=== PATIENT | female | born 1965 | race Caucasian/White ===

== ENCOUNTER → 2024-03-28 11:02 | Outpatient (REF) | payer BC, SELFPAY | LOC: REG 11:02 | PROVIDERS: ATTENDING PHYSICIAN Nurse Practitioner Adult Health; FAMILY PHYSICIAN Internal Medicine | DX: R10.30 Lower abdominal pain, unspecified (principal) | CPT/HCPCS: 87077; 87086; 87186 ==

== ENCOUNTER → 2024-05-15 16:19 | Outpatient (REF) | payer BC, SELFPAY | LOC: PAVMRI 16:19 | PROVIDERS: ATTENDING PHYSICIAN Nurse Practitioner Adult Health | DX: M54.14 Radiculopathy, thoracic region (principal) | CPT/HCPCS: 72146 ==

== ENCOUNTER → 2024-10-01 07:54 | Outpatient (REF) | payer BC, SELFPAY | LOC: WDC 07:54 | PROVIDERS: ATTENDING PHYSICIAN Internal Medicine | DX: Z12.39 Encounter for other screening for malignant neoplasm of breast (principal); Z12.31 Encounter for screening mammogram for malignant neoplasm of breast | CPT/HCPCS: 77063; 77067 ==

== ENCOUNTER → 2024-10-01 09:09 | Outpatient (REF) | payer BC, SELFPAY ==
[2024-10-01 10:58] LABS: % Eosinophils 1.6 % (0-6); % Immature Granulocytes 0.6 % (0-0.5); % Lymphocytes 25.9 % (20.5-51.1); % Neutrophils 64.9 % (42.2-75.2); Absolute Basophils 0.1 10^3/uL (0-0.2); Absolute Eosinophils 0.1 10^3/uL (0-0.7); Absolute Immature Granulocytes 0.1 10^3/uL (0-0.05); Absolute Monocytes 0.5 10^3/uL (0.1-0.6); Hematocrit 45.9 % (37.0-47.0); Hemoglobin 15.3 g/dL (12.0-16.0); Mean Corp Hgb Conc. 33.3 g/dL (33.0-37.0); Mean Corpuscular Hgb 29.7 pg (27.0-31.0); Mean Corpuscular Volume 89.1 fL (81.0-99.0); Mean Platelet Volume 10.9 fL (7.4-10.4); Nucleated Red Blood Cells % 0 %; Platelet Count 299 10^3/uL (130-400); Red Blood Cell Count 5.15 10^6/uL (4.20-5.40); Red Cell Dist. Width 13.1 % (11.5-14.5); White Blood Cell Count 7.7 10^3/uL (4.8-10.8)
[2024-10-01 11:58] LABS: ALT (SGPT) 40 U/L (0-35); AST (SGOT) 33 U/L (14-36); Albumin 4.8 g/dl (3.5-5.0); Alkaline Phosphatase 109 U/L (38-126); Blood Urea Nitrogen 16 mg/dl (7-17); Calcium 10.1 mg/dl (8.4-10.2); Carbon Dioxide 29 mmol/L (22-30); Chloride 98 mmol/L (98-107); Glucose 97 mg/dl (70-99); HDL Cholesterol 44 mg/dl; LDL Cholesterol, Calculated 141 mg/dl; Potassium 4.5 mmol/L (3.5-5.1); Sodium 142 mmol/L (135-145); Total Bilirubin 0.9 mg/dl (0.2-1.3); Total Cholesterol 206 mg/dl (50-199); Total Protein 7.7 g/dl (6.3-8.2); Triglyceride 109 mg/dl (10-149); Very Low Density Lipoprotein 21 mg/dl (0-30); eGFR > 60.00
[2024-10-01 12:28] LABS: TSH Reflex To Free T4 1.32 uIU/ml (0.47-4.68)
== END ==
LOC: REG 09:09
PROVIDERS: ATTENDING PHYSICIAN Internal Medicine
DX: Z00.00 Encounter for general adult medical examination without abnormal findings (principal)
CPT/HCPCS: 36415; 80053; 80061; 84443; 85025

== ENCOUNTER → 2024-10-08 10:03 | Outpatient (REF) | payer BC, SELFPAY ==
[2024-10-08 12:01] LABS: Glycohemoglobin (HgbA1c) 5.4 % (4.0-5.6)
== END ==
LOC: REG 10:03
PROVIDERS: ATTENDING PHYSICIAN Nurse Practitioner Adult Health
DX: E66.9 Obesity, unspecified (principal)
CPT/HCPCS: 36415; 83036

== ENCOUNTER 2025-02-25 22:23 | Inpatient (IN) | payer BC, SELFPAY ==
[2025-02-25 18:14] VITALS: BP 102/66
[2025-02-25] MEDS: LOW STRENGTH ASPIRIN 324 MG PO (18:22)
[2025-02-25 18:25] VITALS: BMI 36.8
--- NOTE | 2025-02-25 18:25 | ED.GENMED ---
History of Present Illness
General
Chief Complaint: Chest Pain
Source: patient
Exam Limitations: none
Time Seen by Provider: 02/25/25 18:19
Nursing documentation reviewed up to this point in time: agreed with
History of Present Illness
History of Present Illness:
59-year-old female presents Emergency Department due to chest pain that began at 2 AM. It seemed to go away, and he has she has been having nausea all day.
Past History
Past History
ED Past Medical History: HTN, Psychiatric and Other (Migraine headaches)
ED Past Surgical History: Cholecystectomy and Gynecological (Hysterectomy)
Social History
Tobacco: Non-smoker
Alcohol: Occasional (Rare)
Personal:
Living: with family
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
Family History
Family History: CAD
Review of Systems
Review of Systems
Allergies reviewed?: Yes
All Other Systems: Not applicable
Constitutional: Reports no symptoms
EENT: Reports no symptoms
Respiratory: Reports no symptoms
Cardiac: Reports chest pain
ABD/GI: Reports no symptoms
: Reports no symptoms
Musculoskeletal: Reports no symptoms
Skin: Reports no symptoms
Neurological: Reports no symptoms
Endocrine: Reports no symptoms
Hematologic/Lymphatic: Reports no symptoms
Psychiatric: Reports no symptoms
Phy Exam
Physical Exam
Physical Exam:
Physical Exam
General: Appears uncomfortable, afebrile
Neck: supple. no meningeal signs. normal posterior pharynx
Heart: s1/s2 regular rate and rhythm, no murmur. equal radial
pulses.
HEENT: Pupils equal round reactive to light, EOMI
Lungs: no acute respiratory distress. clear bilaterally
Abdomen: normal bowel sounds. not tender. no CVAT
Neuro: alert and oriented. no focal neurological deficits cranial nerves II through XII intact
Skin: no rash
Psychiatric: well kept. interactive and cooperative
Extremities: no edema. no calf tenderness. negative homans. good distal pulses
Scores
Heart Score for Chest Pain Patients
STEMI patient?: Yes
Course
Orders/Labs/Results
Orders:
Orders
02/25/25 18:09
EKG [Electrocardiogram (*1)] Urgent
Reason for Study: Chest Pain
02/25/25 18:10
EKG- Treatment ONCE
02/25/25 18:25
Ondansetron Injectable [Zofran] 4 mg .ROUTE .STK-MED ONE
02/25/25 18:29
Aspirin Chewable [Low Strength Aspirin] 324 mg PO NOW STA
Heparin 5,000 units IV NOW STA
Ticagrelor [Brilinta] 180 mg PO ONCE ONE
02/25/25 18:30
Ondansetron Injectable [Zofran] 4 mg IV NOW STA
02/25/25 18:33
Complete Blood Count/With Diff Urgent
Comprehensive Metabolic Panel Urgent
PTT Urgent
Prothrombin Time Urgent
Troponin I Urgent
02/25/25 18:35
Fentanyl Citrate/Pf [Sublimaze] 100 mcg .ROUTE .STK-MED ONE
Heparin 10,000 units .ROUTE .STK-MED ONE
Heparin 1000 Units/500 ml [Heparin] 1,000 units in 500 ml .ROUTE .STK-MED
Heparin Sodium,Porcine/Ns/Pf [Heparin 2000 Units/1000 ml] 2,000 unit in 1,000 ml .ROUTE .STK-MED
Lidocaine HCl/Pf [Xylocaine-Mpf 1% Vial] 100 mg .ROUTE .STK-MED ONE
Midazolam HCl [Versed] 2 mg .ROUTE .STK-MED ONE
Nitroglycerin [Tridil] 1,500 mcg .ROUTE .STK-MED ONE
Verapamil Injectable [Isoptin/Verapamil Injection] 5 mg .ROUTE .STK-MED ONE
02/25/25 19:11
Eptifibatide [Integrilin] 20 ml .ROUTE .STK-MED
02/25/25 19:24
Adenosine [Adenocard] 6 mg .ROUTE .STK-MED ONE
02/25/25 19:36
Lactic Acid Stat
Comment: RAPID
02/25/25 19:47
Nicardipine 40 mg/200 ml [Cardene] 40 mg in 200 ml .ROUTE .STK-MED
02/25/25 19:49
EPTIFIBATIDE 75 mg/100 mL [Integrilin] 75,000 mcg in 100 ml .ROUTE .STK-MED
02/25/25 19:56
Heparin 1000 Units/500 ml [Heparin] 1,000 units in 500 ml .ROUTE .STK-MED
02/25/25 20:11
Lidocaine HCl/Pf [Xylocaine-Mpf 1% Vial] 50 mg .ROUTE .STK-MED ONE
02/25/25 20:12
Furosemide [Lasix] 80 mg .ROUTE .STK-MED ONE
Abnormal Lab Results
02/25/25 02/25/25 02/25/25
18:33 18:56 19:20
WBC 25.8 H 10^3/uL
(4.8-10.8)
Abs Immat Gran (auto) 0.3 H 10^3/uL
(0-0.05)
Absolute Neuts (auto) 21.1 H 10^3/uL
(1.4-6.5)
Absolute Monos (auto) 1.7 H 10^3/uL
(0.1-0.6)
Immature Gran % 1.0 H %
(0-0.5)
Neutrophils % 81.9 H %
(42.2-75.2)
Lymphocytes % 10.4 L %
(20.5-51.1)
PT 16.0 H Sec
(11.4-14.6)
Chloride 96 L mmol/L
(98-107)
BUN 22 H mg/dl
(7-17)
Creatinine 1.5 H mg/dL
(0.6-1.0)
Glucose 171 H mg/dl
(70-99)
Lactic Acid
Calcium 10.6 H mg/dl
(8.4-10.2)
Total Bilirubin 2.1 H mg/dl
(0.2-1.3)
AST 1463 H* U/L
(14-36)
ALT 1132 H* U/L
(0-35)
Troponin I 108.000 H* ng/ml
POC ACT Low Range 195 H Seconds 234 H Seconds
(116-155) (116-155)
02/25/25 02/25/25 02/25/25
19:36 19:37 20:08
WBC
Abs Immat Gran (auto)
Absolute Neuts (auto)
Absolute Monos (auto)
Immature Gran %
Neutrophils %
Lymphocytes %
PT
Chloride
BUN
Creatinine
Glucose
Lactic Acid 2.9 H mmol/L
(0.7-2.0)
Calcium
Total Bilirubin
AST
ALT
Troponin I
POC ACT Low Range 226 H Seconds 236 H Seconds
(116-155) (116-155)
02/25/25 18:33
02/25/25 18:33
Vital Signs
Initial and Last Documented VS:
Initial Vital Signs
Temp Pulse Resp BP Pulse Ox
98.3 F 60 20 102/66 98
02/25/25 18:14 02/25/25 18:14 02/25/25 18:14 02/25/25 18:14 02/25/25 18:14
Last Documented Vital Signs
Temp Pulse Resp BP Pulse Ox
98.3 F 61 15 130/69 98
02/25/25 18:14 02/25/25 18:36 02/25/25 18:36 02/25/25 18:36 02/25/25 18:14
MDM/Problems Addressed
Differential Diagnosis Includes:
STEMI, aortic dissection
MDM/Problems Addressed:
59-year-old female with STEMI. Patient seen at bedside by Dr. Pérez. Doubt aortic dissection. Patient taken emergently to [facility]. Do not suspect aortic dissection.
Chronic conditions affecting care: HTN
Acute Exacerbation and/or Progression of Chronic Illness: HTN
*Pulse Oximetry
Patient hypoxic: no
*EKG
Interpreted by ED Provider?: Yes
EKG Intrepretation Date: 02/25/25
EKG Intrepretation Time: 18:12
Interpretation: abnormal
Comparison EKG: changes noted
Heart Rate: 51
Rate: bradycardiac
Rhythm: sinus
Hoagland: normal axis
Interval: normal interval
QRS Pattern: left bundle branch block
Ischemia: ST elevation
*Grain Farmer Interpretation
Rate: bradycardiac
Interpretation: normal
Heart Rate: 51
Rhythm: sinus
*Critical Care Note
Total Time (30-74mins, 75-104mins- exclusive of procedures): Not Applicable
Patient Management
Social determinants of health affecting care: Living situation and Strong social support
Discussion with other providers: [facility] (Soccer Player Dr. Pérez)
Escalation/DeEscalation of care consider admission/obs:
Admission indicated
ED Attending Note
-
Portions of this chart may have been created with voice recognition software.� Occasional wrong word or��sound alike� substitutions may have occurred due to the inherent limitations of voice recognition software.
Discharge Plan
Departure
Patient Disposition: [facility]
Date of Disposition: 02/25/25
Time of Disposition: 18:32
Admit to: [facility]
Presentation/result/management discussed w/ accepting MD/DO: Dr. Pérez, chief of anesthesiology
Patient with high blood pressure during this ER visit?: No
Condition: Fair
Discharge Problem:
ST elevation (STEMI) myocardial infarction
Interventions
Interventions:
*General Assessment Last Done: 02/25/25 18:14
*Nursing Disposition Last Done: 02/25/25 18:57
ED- Cardiac Assessment Last Done: 02/25/25 18:35
Discharge Date and Time
Discharge Date/Time: 02/25/25 18:45
[2025-02-25] MEDS: ZOFRAN 4 MG IV (18:30)
[2025-02-25] MEDS: HEPARIN 5000 UNITS IV (18:35)
[2025-02-25] MEDS: BRILINTA 180 MG PO (18:35)
[2025-02-25 18:36] VITALS: BP 130/69
[2025-02-25 18:38] VITALS: BP 130/101
[2025-02-25 18:58] LABS: INR 1.22
[2025-02-25 18:59] LABS: APTT 28.1 Sec (23.4-35.0)
[2025-02-25 19:00] LABS: Hematocrit 46.2 % (37.0-47.0); Hemoglobin 15.3 g/dL (12.0-16.0); Mean Corp Hgb Conc. 33.1 g/dL (33.0-37.0); Mean Corpuscular Hgb 28.9 pg (27.0-31.0); Mean Corpuscular Volume 87.3 fL (81.0-99.0); Mean Platelet Volume 9.8 fL (7.4-10.4); Platelet Count 394 10^3/uL (130-400); Red Blood Cell Count 5.29 10^6/uL (4.20-5.40); Red Cell Dist. Width 14.2 % (11.5-14.5); White Blood Cell Count 25.8 10^3/uL (4.8-10.8)
[2025-02-25 19:01] LABS: ACT-LR - POC 195 Seconds (116-155)
[2025-02-25 19:04] LABS: Albumin 4.7 g/dl (3.5-5.0); Alkaline Phosphatase 104 U/L (38-126); Blood Urea Nitrogen 22 mg/dl (7-17); Calcium 10.6 mg/dl (8.4-10.2); Carbon Dioxide 25 mmol/L (22-30); Chloride 96 mmol/L (98-107); Estimated Creatinine Clearance 47 ml/min; Glucose 171 mg/dl (70-99); Potassium 4.2 mmol/L (3.5-5.1); Sodium 138 mmol/L (135-145); Total Bilirubin 2.1 mg/dl (0.2-1.3); Total Protein 7.8 g/dl (6.3-8.2); eGFR 40.39
[2025-02-25 19:07] LABS: % Basophils 0.2 % (0-2); % Lymphocytes 10.4 % (20.5-51.1); % Monocytes 6.5 % (1.7-9.3); % Neutrophils 81.9 % (42.2-75.2); Absolute Basophils 0.1 10^3/uL (0-0.2); Absolute Immature Granulocytes 0.3 10^3/uL (0-0.05); Absolute Lymphocytes 2.7 10^3/uL (1.2-3.4); Absolute Monocytes 1.7 10^3/uL (0.1-0.6); Absolute Neutrophils 21.1 10^3/uL (1.4-6.5); Nucleated Red Blood Cells % 0 %
[2025-02-25 19:20] LABS: ALT (SGPT) 1132 U/L (0-35); AST (SGOT) 1463 U/L (14-36)
[2025-02-25 19:27] LABS: ACT-LR - POC 234 Seconds (116-155)
[2025-02-25 19:41] LABS: ACT-LR - POC 226 Seconds (116-155)
[2025-02-25 19:56] LABS: Lactic Acid 2.9 mmol/L (0.7-2.0)
[2025-02-25 20:13] LABS: ACT-LR - POC 236 Seconds (116-155)
[2025-02-25 20:39] LABS: ACT-LR - POC 205 Seconds (116-155)
[2025-02-25 20:58] LABS: B.E. -4.6 mmol/L; HCO3 19.4 mmol/L (21-28); O2 Saturation % 85.2 % (94-98); PCO2 32 mmHg (32-35); pH 7.39 (7.35-7.45)
[2025-02-25 21:03] LABS: PO2 54 mmHg (83-108)
[2025-02-25 21:10] LABS: ACT-LR - POC 195 Seconds (116-155)
[2025-02-25 22:14] LABS: ACT-LR - POC 197 Seconds (116-155)
--- NOTE | 2025-02-25 22:26 | ITS.CL.CATH ---
Pilling Machine Operator - Catheterization
Cardiac Catheterization
Procedure Report:
LEFT AND RIGHT HEART CATHETERIZATION
Date of Procedure: February 25, 2025
Referring: [place] emergency department
PROCEDURES:
1. Left heart catheterization, coronary angiogram.
2. Right heart catheterization.
3. Successful IVUS guided percutaneous coronary artery intervention of 100% proximal LAD occlusion (ADITYA 0 flow) with one 3.0 x 26 mm Medtronic [place] drug-eluting stent, postdilated with a 3.5 x 15 mm NC balloon at 16 christian distally and a 3.75 x 12 mm
NC balloon at 20 christian proximally based on IVUS guidance with an excellent angiographic and IVUS based result.
4. Intravascular ultrasound (IVUS)
5. Impella CP placement via right common femoral artery.
6. Placement of leave in [place] catheter via right common femoral vein.
7. Placement of a temporary transvenous pacemaker via left common femoral vein.
8. CPR
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
shortness of breath starting around 2 AM along with back pain who presented at around 6:30 PM with ongoing symptoms and was found to have anterior ST elevation MS on EKG which led to the heart catheterization team being called and emergently.
Patient received 325 mg of aspirin, 180 mg of Brilinta, 5000 units of unfractionated IV heparin in the emergency room and after detailed informed consent was urgently brought up to the heart catheterization lab. Of note, her initial ECG along with
the ST elevation MS also showed complete heart block with a ventricular escape.
ACCESS:
1. Right radial artery, 6 Taiwanese sheath, under ultrasound guidance.
2. Right common femoral artery, 14 Taiwanese sheath, under ultrasound guidance using a micropuncture kit.
3. Right common femoral vein, 8 Taiwanese sheath, under ultrasound guidance using a micropuncture kit.
4. Left common femoral vein, 6 Taiwanese sheath, under ultrasound guidance using a micropuncture kit.
HEMODYNAMICS : (mmHg)
RA (m) : 21
RV (s/d,m) : 43/13, 21
PA (s/d, m) : 56/27, 37
PCWP (m) : 35
PA saturation: 29.4% on 5 L of oxygen via nasal cannula. Repeat was 25.2%
AO saturation: 85% on 5 L of oxygen via nasal cannula
Cardiac Output : 1.8 L/min
Cardiac Index : 0.9 L/min/m-2
Systemic vascular resistance: 3324 dsc^(-5)
Pulmonary vascular resistance: 0.97 rodríguez unit
AO (s/d) : 99/73
LV (s/d) : 101/76
LVEDP : 27
CORONARY FINDINGS
DOMINANCE: Right
LEFT MAIN: The left main artery is a large-caliber vessel which gives rise to the left anterior descending artery and the left circumflex artery. There is mild diffuse atherosclerotic plaque
LEFT ANTERIOR DESCENDING: The left anterior descending artery is a large-caliber vessel with 100% occlusion which is the cause of her presenting ST elevation MS (ADITYA 0 flow)
CIRCUMFLEX: The left circumflex artery is a medium caliber vessel which gives rise to 2 major obtuse marginal branches. There is mild diffuse atherosclerotic plaque.
RIGHT CORONARY ARTERY: The right coronary artery is a medium to large caliber, dominant vessel which gives rise to the right posterior descending artery and the right posterolateral system. Mid RCA has a 70 to 80% eccentric stenosis. The right
posterior descending artery has diffuse 40 to 50% stenosis and is small in caliber. The right posterolateral system has diffuse moderate to severe atherosclerotic plaque and is small in caliber.
CORONARY INTERVENTION: Decision was made to proceed with intervention of the proximal LAD occlusion. Additional heparin was given to maintain a therapeutic ACT throughout the case. The left coronary artery was selectively engaged using a 6 Taiwanese
EBU 3.5 guide catheter. Initially we attempted a 190 cm 0.014 BMW coronary wire however despite multiple passes we could not navigate across the occlusion with the wire buckling and prolapsing into the left circumflex. We then trialed a 300 cm
0.014 director of billing 50 coronary wire and after multiple challenging attempts were finally able to navigate the wire into the distal vessel. We decided to give 2 Integrilin boluses at this time. We predilated the lesion with a 2.5 x 12 mm semi-compliant
balloon at 14 christian using multiple inflations and were eventually able to see some flow beyond the lesion. A diagonal branch that is small to medium in caliber just distal to the occlusion also had some easiness noted in the ostium of the vessel. We
proceeded with stenting the lesion with a 3.0 x 26 mm Medtronic John drug-eluting stent. Using IVUS guidance we then postdilated the lesion using a 3.5 x 15 mm NC balloon at 16 christian distally and a 3.75 x 12 mm NC balloon at 20 christian proximally.
Despite this we noted significant amount and no reflow in the mid to distal LAD. With the director of billing 50 into the distal vessel we brought in a 0.014 mini microcatheter into the mid LAD and through the microcatheter we gave multiple rounds of
vasodilators including nitroglycerin and nicardipine IC. With this we saw some improved flow into the distal vessel. Post PCI IVUS imaging showed a well-expanded and well apposed stent without evidence of proximal or distal edge dissections with
ADITYA-3 flow into the distal LAD. Ostial D1 thrombotic haziness was noted with 70 to 80% stenosis and ADITYA II flow however this is a small to medium caliber vessel. We then proceeded with a right heart catheter cessation number given her lab work
revealed a initial troponin I of 108, LFTs in the low 1000s and a lactate elevated at 2.9. With right heart catheterization suggesting significant cardiogenic shock, we decided to proceed with Impella CP placement. We obtained right common femoral
arterial access under ultrasound guidance using a micropuncture kit and placed the Impella CP sheath. As soon as we used a pigtail to cross the aortic valve into the LV, patient unfortunately had complete loss of the ventricular escape rhythm with
a string of P waves. Immediate CPR was initiated while we also got ready to transcutaneously pace. Through the right common femoral venous access that was already in place for the right heart catheterization, we very quickly brought up a
transvenous pacemaker and started pacing her transvenously with successful ventricular capture and a threshold of 1 mA. We perform CPR for less than 30 seconds before ROSC was obtained and patient thankfully continued to mentate well without
significant hypotension or other issues. Throughout the procedure as patient became more hypoxic, we also called respiratory to place a CPAP machine to help with oxygenation in the setting of pulmonary edema while 80 mg of IV Lasix was already
given. We obtain a secondary left common femoral venous access to sterilely place a second temporary transvenous pacemaker given the initial TVP did not have a sterile cover on it. Once we made a successful transfer with confirmation of capture
with the second TVP device, the first TVP device was retracted from the right common femoral venous access. The 6 Taiwanese sheath was upsized to a 7-1/2 Taiwanese sheath and through this we placed and left in a [place]ucl[place]qu[place] catheter which was parked in the
central PA. Everything was sutured and secured in place. Her Impella was providing 3 to 3.5 L/min of cardiac output. Her maps were noted to be in the low 100s after the Impella was placed so the decision was made to also start her on
nitroprusside in the CVICU. She otherwise tolerated the procedure well with no acute complications.
SEDATION: 141 minutes of procedural sedation was utilized. An independent medical technicians was present to assist with and help manage the patient's level of consciousness and physiologic status.
RADIATION SUMMARY: Fluoro Time (min): 26.0, Dose (mGy): 2008.2, DAP (Gy.cm2) : 122.2
Closure Device: 1. Vascular band over right radial artery, 11 cc of air.
2. Right common femoral arterial sheath, right common femoral venous sheath and left common femoral venous sheaths were sutured in place. Impella, [place]qu[place] catheter and temporary transvenous pacemaker were all secured in place.
CONCLUSIONS
1. Successful IVUS guided percutaneous coronary artery intervention of 100% proximal LAD occlusion (ADITYA 0 flow) with one 3.0 x 26 mm Medtronic John drug-eluting stent, postdilated with a 3.5 x 15 mm NC balloon at 16 christian distally and a 3.75 x 12 mm
NC balloon at 20 christian proximally based on IVUS guidance with an excellent angiographic and IVUS based result.
2. Severely elevated right left-sided filling pressures with significantly reduced cardiac output concerning for cardiogenic shock with Impella CP placement via right common femoral artery.
3. Mid RCA has a 70 to 80% eccentric stenosis. The right posterior descending artery has diffuse 40 to 50% stenosis and is small in caliber. The right posterolateral system has diffuse moderate to severe atherosclerotic plaque and is small in
caliber.
RECOMMENDATIONS
1. Uninterrupted dual antiplatelet therapy with daily baby aspirin and 90 mg of Brilinta twice daily along with high intensity statin.
2. Urgent echocardiogram to assess biventricular function and get a baseline Impella placement.
3. Every 6 hour lab work including CBC, CMP, lactate, mixed venous sats after left radial arterial line is obtained.
4. Chest x-ray now and in the morning.
5. Aggressive management of cardiovascular risk factors.
6. Eventual referral for cardiac rehab.
Dot Pérez MD, FACC, [facility]
--- NOTE | 2025-02-25 22:52 | HPS.HSE ---
Family Physician
-
Family Physician: Tabby Millan
Chief Complaint
-
Chest PAin
History of Present Illness
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
breath starting around 2 AM along with back pain who presented at around 6:30 PM with ongoing symptoms and was found to have anterior ST elevation NC on EKG which led to the heart catheterization team being called and emergently. Patient received
325 mg of aspirin, 180 mg of Brilinta, 5000 units of unfractionated IV heparin in the emergency room and after detailed informed consent was urgently brought up to the heart catheterization lab. She denies any history of hyperlipidemia, type 2
diabetes mellitus. There is strong family history of premature coronary artery disease in grandparents. Her older sister is with her in the emergency room. Patient is a non-smoker, very rare alcohol use, no recreational drug usage. She has 2
kids.
Medical History
Past Medical History
Past Medical History: Reports HTN; Denies CVA, Hypercholesterolemia, IDDM or NIDDM
Past Surgical History: Reports None
Social History
Tobacco: Non-smoker
Alcohol: Occasional
Drug: None
Personal: Single
Living: With Family
Employment: Employed
Family History
Family History: Early CAD
Allergies / Home Medications
Allergies reflects when Allergies were last updated in [employer].
Home Medications with original date entered in [employer]
Allergy/Medication List:
No known drug allergies
If Other, explain: Amlodipine 10 mg daily and losartan 50 mg daily.
Review of Systems
-
A 12 point ROS was completed and negative except as noted: Yes
Physical Exam
Vital Signs
Vital Signs
Temp Pulse Resp BP Pulse Ox
98.3 F 61 15 130/69 98
02/25/25 18:14 02/25/25 18:36 02/25/25 18:36 02/25/25 18:36 02/25/25 18:14
Physical Exam
General: Well Developed, Well Nourished and Appears in Distress (Ongoing chest pain)
HEENT: Moist mucous membranes
Respiratory: Rales and Crackles
Cardiac: S1/S2, Bradycardia, JVD and HJR; No Rub or Gallop
GI: Soft, Non Tender, Non Distended and Normal Bowel Sounds
Genito-urinary: Deferred by me
Musculoskeletal: No Clubbing, No Cyanosis and No Edema
Skin: Warm and Dry
Neuro: AO x 3
Psych: Anxious
Laboratory Results
-
Laboratory Results
PT 16.0 Sec (11.4-14.6) H 02/25/25 18:33
INR 1.22 02/25/25 18:33
APTT 28.1 Sec (23.4-35.0) 02/25/25 18:33
pH 7.39 (7.35-7.45) 02/25/25 20:44
pCO2 32 mmHg (32-35) 02/25/25 20:44
pO2 54 mmHg (83-108) L* 02/25/25 20:44
HCO3 19.4 mmol/L (21-28) L 02/25/25 20:44
Lactic Acid 2.9 mmol/L (0.7-2.0) H 02/25/25 19:36
Total Bilirubin 2.1 mg/dl (0.2-1.3) H 02/25/25 18:33
AST 1463 U/L (14-36) H* 02/25/25 18:33
ALT 1132 U/L (0-35) H* 02/25/25 18:33
Alkaline Phosphatase 104 U/L (38-126) 02/25/25 18:33
Troponin I 108.000 ng/ml H* 02/25/25 18:33
Data Reviewed
-
Critical Care Time (in minutes): 62
Medical Tests (Nuc Med, Echo, EKG etc): Image Personally Visualized and interpreted
Lab Data: Labs Reviewed by me
Impression/Plan
-
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
shortness of breath starting around 2 AM along with back pain who presented at around 6:30 PM with ongoing symptoms and was found to have anterior ST elevation NC on EKG which led to the heart catheterization team being called and emergently.
Patient received 325 mg of aspirin, 180 mg of Brilinta, 5000 units of unfractionated IV heparin in the emergency room and after detailed informed consent was urgently brought up to the heart catheterization lab.
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
Possibly late presenting anterior and anterolateral ST elevation NC, Successful IVUS guided percutaneous coronary artery intervention of 100% proximal LAD occlusion (ADITYA 0 flow) with one 3.0 x 26 mm Medtronic John drug-eluting stent, postdilated
with a 3.5 x 15 mm NC balloon at 16 christian distally and a 3.75 x 12 mm NC balloon at 20 christian proximally based on IVUS guidance with an excellent angiographic and IVUS based result.
Cardiogenic shock status post Impella CP
Acute decompensated systolic and diastolic heart failure, 80 mg of IV Lasix given during the case
Complete heart block status post temporary transvenous pacemaker
Acute hypoxic respiratory failure, placed on positive ventilatory support with CPAP
Hypertension
Residual Mid RCA CAD
Acute kidney injury
Acute liver injury
Transient CPR during cath for loss of ventricular escape, ROSC within less than 30 seconds with normal mentation afterward
RECOMMENDATIONS
1. Uninterrupted dual antiplatelet therapy with daily baby aspirin and 90 mg of Brilinta twice daily along with high intensity statin.
2. Urgent echocardiogram to assess biventricular function and get a baseline Impella placement. This was completed at bedside with me present there. Estimated LVEF is 15 to 20% with significant hypokinesis in the LAD territory. Impella appears
to be well-positioned about 3.7 cm below the aortic annulus.
3. Every 6 hour lab work including CBC, CMP, lactate, mixed venous sats after left radial arterial line is obtained.
4. Chest x-ray now and in the morning.
5. Aggressive management of cardiovascular risk factors.
6. Eventual referral for cardiac rehab.
Patient is critically ill as discussed with nursing, patient and her family.
Dot Pérez MD, FACC, [facility]
[2025-02-25 23:03] VITALS: BP 135/108
[2025-02-25] MEDS: SODIUM BICARBONATE 1025 MEQ INF CATH (23:27)
--- NOTE | 2025-02-25 23:30 | PTCARENOTE ---
received pt from [facility] to [id number]. Pt AAOx4, Impella CP through R groin set to P-6. R fem vein w/ Randolph floated to 70cm. 100% v paced HR 80 per tele monitor. Transvenous pacer through L fem vein sheath. v wire set to VVI 80/20/2. pox 99% on CPAP
8/10, lungs clear throughout. +bs, fine draining clear yellow urine. R band inflated with 10 mls. piv intact. plan of care discussed questions encouraged
gtts:
Nipride
[2025-02-25] MEDS: NITROPRESS 252 MG IV (23:32)
[2025-02-25 23:33] VITALS: BP 124/95
[2025-02-25 23:45] VITALS: BP 124/82
[2025-02-25 23:57] LABS: Mixed Venous O2 Saturation 44.3 %
[2025-02-26] VITALS (19 sets, daily range): BP systolic 77–136; BP diastolic 51–96; BMI 36.2
[2025-02-26 00:01] LABS: ACT-LR - POC 157 Seconds (116-155)
[2025-02-26 00:02] LABS: Hematocrit 38.7 % (37.0-47.0); Hemoglobin 13.3 g/dL (12.0-16.0); Mean Corp Hgb Conc. 34.4 g/dL (33.0-37.0); Mean Corpuscular Hgb 29.4 pg (27.0-31.0); Mean Corpuscular Volume 85.4 fL (81.0-99.0); Mean Platelet Volume 9.8 fL (7.4-10.4); Platelet Count 328 10^3/uL (130-400); Red Blood Cell Count 4.53 10^6/uL (4.20-5.40); Red Cell Dist. Width 14.1 % (11.5-14.5); White Blood Cell Count 22.9 10^3/uL (4.8-10.8)
[2025-02-26 00:11] LABS: Fibrinogen 566 MG/DL (199-459); INR 1.39; PT 17.6 Sec (11.4-14.6)
[2025-02-26 00:13] LABS: APTT 91.7 Sec (23.4-35.0); D-Dimer 1.03 ug/mlFEU (0.00-0.50)
[2025-02-26 00:14] LABS: Lactic Acid 1.9 mmol/L (0.7-2.0)
[2025-02-26 00:16] LABS: Albumin 4.1 g/dl (3.5-5.0); Alkaline Phosphatase 93 U/L (38-126); Blood Urea Nitrogen 27 mg/dl (7-17); Calcium 9.2 mg/dl (8.4-10.2); Carbon Dioxide 26 mmol/L (22-30); Chloride 101 mmol/L (98-107); Estimated Creatinine Clearance 59 ml/min; Glucose 133 mg/dl (70-99); Potassium 3.5 mmol/L (3.5-5.1); Sodium 137 mmol/L (135-145); Total Bilirubin 1.5 mg/dl (0.2-1.3)
[2025-02-26 00:28] LABS: ALT (SGPT) 2007 U/L (0-35)
--- NOTE | 2025-02-26 00:29 | W.PN.ANS.LIN ---
Anesthesia IV & A-Line Note
- IV/Arterial Line
Left Radial Arrow 20 (01/27)
IV Line Comments: Uneventful Procedure
A-Line Comments: Sterile technique as per standard protocol, Uneventful procedure, Seldinger technique used, Ultrasound guided insertion, Biopatch applied (successful placement after multiple attempts by PA.)
[2025-02-26 00:41] LABS: B.E. -1.6 mmol/L; HCO3 21.5 mmol/L (21-28); Ionized Calcium 1.17 mMOL/L (1.15-1.33); O2 Saturation % 96.8 % (94-98); PCO2 31 mmHg (32-35); PO2 74 mmHg (83-108); Potassium 3.3 mMOL/L (3.5-5.1); pH 7.45 (7.35-7.45)
[2025-02-26 00:43] LABS: O2 Therapy CPAP
[2025-02-26 00:53] LABS: AST (SGOT) 3319 U/L (14-36)
[2025-02-26] MEDS: KCL 50 IV ×2 (00:55→03:20)
[2025-02-26] MEDS: LIPITOR 80 MG PO (00:57)
[2025-02-26 01:43] LABS: LDH 5520 U/L (120-246)
[2025-02-26 02:30] LABS: Mixed Venous O2 Saturation 61.1 %
[2025-02-26 02:32] LABS: B.E. -1.7 mmol/L; HCO3 21.9 mmol/L (21-28); O2 Saturation % 99.5 % (94-98); PCO2 33 mmHg (32-35); PO2 211 mmHg (83-108); Potassium 3.7 mMOL/L (3.5-5.1); pH 7.43 (7.35-7.45)
[2025-02-26 02:35] LABS: O2 Therapy CPAP 10L
[2025-02-26 05:09] LABS: B.E. -0.4 mmol/L; HCO3 22.8 mmol/L (21-28); Ionized Calcium 1.18 mMOL/L (1.15-1.33); O2 Saturation % 98.7 % (94-98); PCO2 32 mmHg (32-35); PO2 88 mmHg (83-108); Potassium 3.9 mMOL/L (3.5-5.1); pH 7.46 (7.35-7.45)
[2025-02-26 05:10] LABS: O2 Therapy 6 L NC
[2025-02-26 05:12] LABS: Mixed Venous O2 Saturation 57.6 %
[2025-02-26 05:26] LABS: % Basophils 0.2 % (0-2); % Immature Granulocytes 0.9 % (0-0.5); % Monocytes 3.3 % (1.7-9.3); % Neutrophils 82.6 % (42.2-75.2); Absolute Immature Granulocytes 0.2 10^3/uL (0-0.05); Absolute Monocytes 0.8 10^3/uL (0.1-0.6); Absolute Neutrophils 19.3 10^3/uL (1.4-6.5); Hematocrit 37.2 % (37.0-47.0); Hemoglobin 12.5 g/dL (12.0-16.0); Mean Corp Hgb Conc. 33.6 g/dL (33.0-37.0); Mean Corpuscular Hgb 28.6 pg (27.0-31.0); Mean Corpuscular Volume 85.1 fL (81.0-99.0); Mean Platelet Volume 9.8 fL (7.4-10.4); Nucleated Red Blood Cells % 0 %; Platelet Count 304 10^3/uL (130-400); Red Blood Cell Count 4.37 10^6/uL (4.20-5.40); White Blood Cell Count 23.4 10^3/uL (4.8-10.8)
[2025-02-26 05:34] LABS: INR 1.31; PT 16.8 Sec (11.4-14.6)
[2025-02-26 05:35] LABS: APTT 32.7 Sec (23.4-35.0); Fibrinogen 586 MG/DL (199-459)
[2025-02-26 05:38] LABS: D-Dimer 1.85 ug/mlFEU (0.00-0.50)
[2025-02-26 05:44] LABS: Lactic Acid 1.6 mmol/L (0.7-2.0)
[2025-02-26 05:48] LABS: Albumin 3.3 g/dl (3.5-5.0); Alkaline Phosphatase 87 U/L (38-126); Blood Urea Nitrogen 27 mg/dl (7-17); Calcium 9.2 mg/dl (8.4-10.2); Carbon Dioxide 26 mmol/L (22-30); Chloride 103 mmol/L (98-107); Direct Bilirubin 0.3 mg/dl (0.0-0.4); Estimated Creatinine Clearance 78 ml/min; Glucose 123 mg/dl (70-99); HDL Cholesterol 42 mg/dl; Potassium 4.2 mmol/L (3.5-5.1); Sodium 135 mmol/L (135-145); Total Bilirubin 1.7 mg/dl (0.2-1.3); Total Cholesterol 136 mg/dl (50-199); Total Protein 5.7 g/dl (6.3-8.2); eGFR > 60.00
[2025-02-26 05:49] LABS: LDL Cholesterol, Calculated 68 mg/dl; Triglyceride 132 mg/dl (10-149); Very Low Density Lipoprotein 26 mg/dl (0-30)
[2025-02-26 06:02] LABS: ALT (SGPT) 2057 U/L (0-35)
[2025-02-26 06:09] LABS: AST (SGOT) 3269 U/L (14-36)
[2025-02-26 06:22] LABS: LDH 5410 U/L (120-246)
[2025-02-26] MEDS: LASIX 80 MG IV ×2 (06:22→14:09)
--- NOTE | 2025-02-26 07:51 | PTCARENOTE ---
Saturated right groin dressing changed using sterile technique as per Dr Pérez. Site now clean dry and intact. Jose aware and will continue to monitor. Dr Pérez at the bedside.
--- NOTE | 2025-02-26 08:15 | PTCARENOTE ---
Assumed care of patient at 0700. Pt is awake, alert, and oriented. No complaints of pain at this time. Pt remains 100% V paced. Transvenous pacer in place set to 80/20/2. Impella in place at 89cm set to P7, now changed to P6 by Dr. Pérez. Left
radial Martin BP 112/74 MAP 83. PA 27/14, CVP 9. Placement signal 90/62. Pulse oximetry 96% on 6L nasal cannula. Bowel sounds hypoactive. Rivas catheter in place draining yellow urine. Right radial cath site ARASELI, approximated. Bilateral radial pulses
palpable. Left groin with transvenous pacer/venous sheath. Right femoral venous sheath/[place]-Jacqueline catheter at [address]cm [address] place. Right femoral artery with Impella in place. Bilateral pedal pulses present with Doppler. Nipride at 1mcg/kg/min.
[2025-02-26 09:03] LABS: Glycohemoglobin (HgbA1c) 5.7 % (4.0-5.6)
[2025-02-26 09:13] LABS: ACT-LR - POC 131 Seconds (116-155)
[2025-02-26] MEDS: LOW STRENGTH ASPIRIN 81 MG PO (09:25)
[2025-02-26] MEDS: BRILINTA 90 MG PO ×2 (09:25→19:22)
--- NOTE | 2025-02-26 10:31 | W.PN.UPDATE ---
Update Note
Progress Note Update
Interventional cardiology update note
Around 5:30-6 AM on February 26, 2025, discussed overnight events with CT surgical PA reviewing all vital signs including [place]-Jacqueline catheter numbers as well as the Impella numbers along with lab work. Her lactate remains normal At 1.6, creatinine
normalized to 0.9, LFTs are still significantly elevated. Her blood gas remained stable off CPAP currently. She is diuresing well and producing 50 cc of urine per hour. Her blood pressure on the A-line is 105/74, MAP of 83, PA pressure of 30/17,
mean PA pressure of 21, RA pressure of 8, cardiac output and cardiac indices by thermodilution at bedside are 3.12 and 1.55. She is currently on P7. Groin Impella dressing saturated in blood with plan to redress this morning. We decided to give
additional 80 mg of IV Lasix and increase the night pride to aim for maps of 65-70 and avoiding any systolic blood pressure less than 95 mmHg. Continue to maintain Impella at P7 support. Plan to trend LDH Given patient is high risk for hemolysis.
Around 7:30 AM on February 26, 2025, patient seen and evaluated at bedside. Groin dressing was re-dressed after ice Previous dressing had completely soaked. Thankfully her blood counts have remained stable with hemoglobin at 12.5. Repeat mixed
venous saturation is 57.6 with cardiac output of about 1.5, cardiac power output of 0.66 and PAP of about 2. Her PA pressure was 31/15, RA pressure of 9, cardiac output of 3.57 and cardiac index of 1.78 with SVR of 1680. I discussed with nursing
at bedside to uptitrate nitroprusside to aim for maps of 65-70 and attempt of getting SVR down and improving cardiac output. We decreased Impella support to P6 to minimize risk for hemolysis.
On exam patient remains in good spirits, denies any chest discomfort or shortness of breath, is on bedrest complaining of some lower back discomfort. Awake, alert and oriented x 3, regular rate, normal S1 and S2, all groin lines are in place,
clean, dry and intact, radial site without evidence of hematoma or bruit. Temp wires in place and patient is V paced at 80 bpm. Blood pressure on arterial line is 119/81, MAP of 90. Lactate has normalized with creatinine down to 0.9
Around 8:15AM: I reached out to Sandy Reyes, advanced heart failure at [facility] to get patient on her reader in case we struggled with weaning of support and suspected she would need escalation of support especially with the weekend
coming up if transfer to a tertiary center was warranted. I presented the case to Sandy and she agreed with the ongoing treatment and did not feel like they would do anything differently at [facility]. We will continue to manage here optimizing
medications
Around 11 AM when I checked back in on her at bedside, upon review of her lab work I noted that her lactate which was normal most of the morning was back up to 2.1. Upon discussion with nursing at bedside we determined that her nitroprusside had
been weaned off. Her maps were now in the high 90s to low 100s. Mixed venous saturation had also dropped off to 56.1 with cardiac index below 1.8 again. Her blood pressure on in the A-line was 118/80 with MAP of 92 with her PA pressures up to
35/18 and RA pressure of 9. Patient otherwise did not report any new symptoms. I discussed with nursing to restart nitroprusside and aim for maps of 65-70 with plan to recheck mixed venous sat as well as a lactate once maps were in that range. I
decided to leave the Impella at P6. We did discuss giving another 80mg IV lasix. Her LDH had come down from 5400 to 4700. Her urinalysis showed 2+ occult blood with 3-6 RBCs in her urine otherwise appeared clear. Given her temperatures were noted
to have low-grade fevers which is likely from a systemic inflammatory response in the setting of an acute AR we did discuss sending 2 sets of blood cultures however would hold off on initiating antibiotics at this time. Echocardiogram tech also was
asked to, bedside and we confirmed that overall LVEF continues to remain about 15 to 20% without obvious LV thrombus noted. The Impella otherwise was stable at about 3.9 cm below the aortic annulus
Around 2 PM her mixed venous sat after adjustment of nitroprusside had improved back up to 61.6 with blood pressure down to 97/63 with a MAP of 72 and PA pressures down to 25/15 and RA pressure of 6 with cardiac output on bedside thermodilution up
to 3.91 and cardiac index of 1.95. She was noted at this time on telemetry to have jumped into a sinus tachycardia with heart rates in the 115's. Patient herself did not report any new complaints. She was still making good urine. Lactate in the
setting had normalized again back down to 1.3 from 2.1. Other repeat labs showed creatinine down to 0.7 with potassium low at 3.3 with plan to replete this. Blood counts had remained stable. LFTs starting to downtrend with AST at 2053 and ALT at
1941. Patient had been taking in some p.o. mainly liquids at this point.
Her sister and her son along with his partner were at bedside. I had a lengthy discussion with them regarding all of the events overnight as well as this morning and we discussed that though a lot of her numbers had improved, she continues to
remain critically ill and we are very closely monitoring and managing her. I did inform that in case we had any concerns about her needing escalation of care that we would have a low threshold to consider transferring to a tertiary center given she
is otherwise young to give her the best chance in terms of recovery post ST elevation AR. Her bedside thermodilution cardiac output was 4.4 and index of 2.1. Given her index had improved significantly, we decided to trial reducing Impella support to
P5 level, changed by myself bedside. I did I discussed with nursing rechecking a lactate level as well as a mixed venous sat around 3 PM
I followed back up with her around 4 PM bedside. Patient's mixed venous sat had dropped back down to 58.4 with lactate going back up to 2.1 with A-line blood pressures up at 114/76 with a MAP of 86 and PA pressures up at 31/17, RA pressure of 9
with cardiac index dropping below 2 again. Given her heart rates were still sinus tachycardia at 115-117, concern was that most of her cardiac output was being driven by increasing heart rate rather than recovery of contractility. Given this we
went back up to P6 with plan to recheck a mixed venous sat and lactate in another hour after making these changes.
Around 4:45PM: Given persistent tachycardia with lactate rising and other hemodynamics worsening with minimal decrease in Impella support, and this otherwise young patient, I was very concerned that she may need prolonged resting from a LV support
standpoint and therefore I reached back out to Sandy Reyes to discuss possible escalation of care and transfer to [facility].
Around 5:30PM, I got on a call with Sandy Reyes and transfer center along with CT surgeon, Dr. Madsen and we presented the case discussing all of the hemodynamics and her presentation in significant detail over a 45-minute phone call and in a team
approach focused on cardiogenic shock, we agreed that it would be best to transfer her to [facility] for close monitoring and escalation of support if need be given she is high risk for hemolysis with a Impella CP device through her
right groin. We then help arrange for transfer. I went back bedside and spoke to the patient at length. Thankfully repeat lactate had come back down to 1.5 with blood gas from a mixed venous standpoint improving back up to 59.6 on Impella P6.
Patient was agreeable to transfer. Discussed extensively with nursing at bedside. Also filled out transfer paperwork and arranged for reports to be printed and sent over with the patient along with CD that included images from the heart
catheterization as well as the echocardiogram. Cath images were also pushed over via life image so that teams at [facility] receiving her could review these. I also reached out to her Sister Helga upon patient's request and
explained all of the above and reason for transfer. Helga relate understanding and all of her questions were answered in detail. Helga told me that she would update patient's son as well as .
Dot Pérez MD, [facility], [facility]
[2025-02-26] MEDS: TOPAMAX 25 MG PO (11:09)
[2025-02-26] MEDS: HEPARIN 25000 UNITS/250 ML IV (11:10)
[2025-02-26 11:22] LABS: Mixed Venous O2 Saturation 56.1 %
[2025-02-26 11:28] LABS: APTT 31.9 Sec (23.4-35.0)
[2025-02-26 11:35] LABS: Lactic Acid 2.1 mmol/L (0.7-2.0)
--- NOTE | 2025-02-26 11:45 | PTCARENOTE ---
Pt remains CHB, remains 100% V paced at rate 80. BP 113/76 MAP 87. PA 35/19, CVP 9. Most recent CO 3.80, CI 1.89, SVR 1662. Impella remains in place set to P6. Placement signal 98/71, flow 2.9, Nipride titrated off. Pedal pulses remains present with
Doppler, radial pulses palpable. Pulse oximetry 94% on room air. Heparin gtt started.
[2025-02-26 12:34] LABS: LDH 4745 U/L (120-246)
--- NOTE | 2025-02-26 13:50 | ECGCV ---
ADOLFO Smith notified of ECG critical value identified by electronic interpretation on ECG completed on 02/26/25, at 1347.
--- NOTE | 2025-02-26 13:52 | PTCARENOTE ---
Pt 100% V paced, HR 80. Converted to ST with HR 115-120's. EKG obtained.
[2025-02-26 14:17] LABS: Hematocrit 35.7 % (37.0-47.0); Hemoglobin 12.4 g/dL (12.0-16.0); Mean Corp Hgb Conc. 34.7 g/dL (33.0-37.0); Mean Corpuscular Hgb 29.2 pg (27.0-31.0); Mean Corpuscular Volume 84.2 fL (81.0-99.0); Mixed Venous O2 Saturation 61.6 %; Platelet Count 245 10^3/uL (130-400); Red Blood Cell Count 4.24 10^6/uL (4.20-5.40); Red Cell Dist. Width 14.3 % (11.5-14.5); White Blood Cell Count 21.4 10^3/uL (4.8-10.8)
[2025-02-26 14:28] LABS: Lactic Acid 1.3 mmol/L (0.7-2.0)
[2025-02-26] MEDS: NITROPRESS 252 MG IV (14:29)
[2025-02-26 14:54] LABS: Urine Albumin 2+ (Neg - Trace); Urine Bilirubin Negative (Negative); Urine Character Clear (Clear); Urine Color Yellow; Urine Glucose Negative (Negative); Urine Ketone Negative (Negative); Urine Leukocyte 1+ (Negative); Urine Nitrite Negative (Negative); Urine Occult Blood 2+ (Negative); Urine Specific Gravity 1.015 (<1.030); Urine Urobilinogen 1+ (Neg - 1+)
[2025-02-26 15:07] LABS: Albumin 3.5 g/dl (3.5-5.0); Alkaline Phosphatase 98 U/L (38-126); Blood Urea Nitrogen 24 mg/dl (7-17); Calcium 8.6 mg/dl (8.4-10.2); Carbon Dioxide 25 mmol/L (22-30); Chloride 101 mmol/L (98-107); Estimated Creatinine Clearance 99 ml/min; Glucose 109 mg/dl (70-99); Potassium 3.3 mmol/L (3.5-5.1); Sodium 134 mmol/L (135-145); Total Bilirubin 2.4 mg/dl (0.2-1.3); Total Protein 5.9 g/dl (6.3-8.2); eGFR > 60.00
[2025-02-26 15:08] LABS: Urine Bacteria Moderate (Negative); Urine White Cell 16-20 /HPF (0-5)
[2025-02-26 15:15] LABS: ALT (SGPT) 1942 U/L (0-35)
--- NOTE | 2025-02-26 15:23 | CM ---
Reviewed chart. Met with Mr. Dhillon, her son and sister to review discharge plans. Family states prior to admission she resides with her spouse and two sons in a three story home with one step to enter. She has a full flight of steps to get to
bedroom/full bathroom. She does not have a powder room on the first floor. Prior to admission she was independent with ambulation and adls. She does not have any DME in the home. She has a prescription plan. Will need to see her functional
level to see if she will have any skilled care needs Medical work-up in progress The discharge plan is undetermined at this time.
[2025-02-26] MEDS: CLARITIN 10 MG PO (15:43)
[2025-02-26 15:48] LABS: AST (SGOT) 2054 U/L (14-36)
--- NOTE | 2025-02-26 16:00 | PTCARENOTE ---
Pt received 80mg IV Lasix per order. Impella placed to P5 by Dr. Pérez. On reassessment Lactic Acid increased from 1.3 to 2.1 and MVO2 decreased from 61.6 to 58.4. Pt placed back to P6 by Dr. Pérez. Pt remains on Nipride 0.4mcg/kg/min.
[2025-02-26 16:11] LABS: Mixed Venous O2 Saturation 58.4 %
[2025-02-26 16:26] LABS: Lactic Acid 2.1 mmol/L (0.7-2.0)
[2025-02-26 17:46] LABS: Mixed Venous O2 Saturation 59.6 %
[2025-02-26 17:47] LABS: APTT 44.4 Sec (23.4-35.0)
[2025-02-26 17:49] LABS: Lactic Acid 1.5 mmol/L (0.7-2.0)
[2025-02-26] MEDS: LIPITOR 40 MG PO (17:49)
[2025-02-26 18:10] LABS: LDH 3580 U/L (120-246)
--- NOTE | 2025-02-26 20:30 | PTCARENOTE ---
pt transferred at change of shift to [facility] by [place] [employer]. Pt stable during transfer, VSS, Impella device and sites maintained. assessment from previous day shift unchanged. gtts: Nipride and Heparin. report called to receiving nurse
at [place] and given to [place] [employer]. pt belongings to be picked by pt sister per day shift team.
== END 2025-02-26 20:46 | disposition short-term general hospital (02) | DRG 215 ==
LOC: CVICU 22:23
PROVIDERS: Physician Assistant; Physician Assistant Medical; ADMITTING PHYSICIAN Internal Medicine; ATTENDING PHYSICIAN Internal Medicine Interventional Cardiology; EMERGENCY PHYSICIAN Emergency Medicine; FAMILY PHYSICIAN Internal Medicine
PROC: B2151ZZ Fluoroscopy of Left Heart using Low Osmolar Contrast (ICD-10-PCS; 2025-02-25)
PROC: 5A12012 Performance of Cardiac Output, Single, Manual (ICD-10-PCS; 2025-02-25)
PROC: B2111ZZ Fluoroscopy of Multiple Coronary Arteries using Low Osmolar Contrast (ICD-10-PCS; 2025-02-25)
PROC: 5A0221D Assistance with Cardiac Output using Impeller Pump, Continuous (ICD-10-PCS; 2025-02-25)
PROC: 5A09357 Assistance with Respiratory Ventilation, Less than 24 Consecutive Hours, Continuous Positive Airway Pressure (ICD-10-PCS; 2025-02-25)
PROC: 02HA3RZ Insertion of Short-term External Heart Assist System into Heart, Percutaneous Approach (ICD-10-PCS; 2025-02-25)
PROC: 4A023N8 Measurement of Cardiac Sampling and Pressure, Bilateral, Percutaneous Approach (ICD-10-PCS; 2025-02-25)
PROC: 5A1223Z Performance of Cardiac Pacing, Continuous (ICD-10-PCS; 2025-02-25)
PROC: 027034Z Dilation of Coronary Artery, One Artery with Drug-eluting Intraluminal Device, Percutaneous Approach (ICD-10-PCS; 2025-02-25)
PROC: B240ZZ3 Ultrasonography of Single Coronary Artery, Intravascular (ICD-10-PCS; 2025-02-25)
PROC: 03HY32Z Insertion of Monitoring Device into Upper Artery, Percutaneous Approach (ICD-10-PCS; 2025-02-26)
DX: I21.09 ST elevation (STEMI) myocardial infarction involving other coronary artery of anterior wall (principal); I50.43 Acute on chronic combined systolic (congestive) and diastolic (congestive) heart failure; J96.01 Acute respiratory failure with hypoxia; R57.0 Cardiogenic shock; N17.9 Acute kidney failure, unspecified; I44.2 Atrioventricular block, complete; I11.0 Hypertensive heart disease with heart failure; I25.10 Atherosclerotic heart disease of native coronary artery without angina pectoris; I49.3 Ventricular premature depolarization; E66.9 Obesity, unspecified; Z68.36 Body mass index [BMI] 36.0-36.9, adult; Z79.899 Other long term (current) drug therapy; Z82.49 Family history of ischemic heart disease and other diseases of the circulatory system
CPT/HCPCS: 93308; 33990; 71045; 80053; 80061; 81003; 81015; 82248; 82330; 82805; 82810; 83036; 83605; 83615; 83735; 84132; 84484; 85025; 85027; 85347; 85379; 85384; 85610; 85730; 87040; 87086; 92978; 93005; 93306; 93460; 94660; 96374; 99152; 99153; 99284; C1725; C1753; C1760; C1769; C1874; C1894; C9606; J0153; J1327; Q9950; Q9967

== ENCOUNTER → 2025-03-19 10:02 | Outpatient (REF) | payer BC, SELFPAY ==
[2025-03-19 10:44] LABS: % Basophils 0.6 % (0-2); % Eosinophils 2.7 % (0-6); % Immature Granulocytes 0.4 % (0-0.5); % Lymphocytes 22.4 % (20.5-51.1); % Monocytes 4.3 % (1.7-9.3); % Neutrophils 69.6 % (42.2-75.2); Absolute Basophils 0.1 10^3/uL (0-0.2); Absolute Eosinophils 0.2 10^3/uL (0-0.7); Absolute Lymphocytes 1.7 10^3/uL (1.2-3.4); Absolute Monocytes 0.3 10^3/uL (0.1-0.6); Absolute Neutrophils 5.4 10^3/uL (1.4-6.5); Hematocrit 34.1 % (37.0-47.0); Mean Corp Hgb Conc. 32.3 g/dL (33.0-37.0); Mean Corpuscular Hgb 28.8 pg (27.0-31.0); Mean Corpuscular Volume 89.3 fL (81.0-99.0); Mean Platelet Volume 9.6 fL (7.4-10.4); Nucleated Red Blood Cells % 0 %; Platelet Count 307 10^3/uL (130-400); Red Blood Cell Count 3.82 10^6/uL (4.20-5.40); Red Cell Dist. Width 16.2 % (11.5-14.5); White Blood Cell Count 7.7 10^3/uL (4.8-10.8)
[2025-03-19 12:24] LABS: Blood Urea Nitrogen 8 mg/dl (7-17); Calcium 9.6 mg/dl (8.4-10.2); Carbon Dioxide 22 mmol/L (22-30); Chloride 108 mmol/L (98-107); Glucose 77 mg/dl (70-99); Magnesium 2.2 mg/dl (1.6-2.3); Potassium 4.6 mmol/L (3.5-5.1); Sodium 142 mmol/L (135-145); eGFR > 60.00
== END ==
LOC: REG 10:02
PROVIDERS: ATTENDING PHYSICIAN Internal Medicine; FAMILY PHYSICIAN Internal Medicine
DX: I10 Essential (primary) hypertension (principal); I50.20 Unspecified systolic (congestive) heart failure
CPT/HCPCS: 36415; 80048; 83735; 85025

== ENCOUNTER 2025-03-26 21:48 | Inpatient (IN) | payer BC, SELFPAY ==
[2025-03-26] VITALS (8 sets, daily range): BP systolic 84–119; BP diastolic 55–98; BMI 35.1
[2025-03-26] MEDS: NSS 500 IV (19:32)
[2025-03-26 19:44] LABS: Hematocrit 36.2 % (37.0-47.0); Mean Corp Hgb Conc. 33.1 g/dL (33.0-37.0); Mean Corpuscular Hgb 28.6 pg (27.0-31.0); Mean Corpuscular Volume 86.4 fL (81.0-99.0); Mean Platelet Volume 9.7 fL (7.4-10.4); Platelet Count 295 10^3/uL (130-400); Red Blood Cell Count 4.19 10^6/uL (4.20-5.40); White Blood Cell Count 6.9 10^3/uL (4.8-10.8)
[2025-03-26 19:56] LABS: INR 1.16; PT 15.3 Sec (11.4-14.6)
[2025-03-26 19:58] LABS: ALT (SGPT) 23 U/L (0-35); AST (SGOT) 30 U/L (14-36); Albumin 4.4 g/dl (3.5-5.0); Alkaline Phosphatase 102 U/L (38-126); Blood Urea Nitrogen 16 mg/dl (7-17); Calcium 9.5 mg/dl (8.4-10.2); Carbon Dioxide 22 mmol/L (22-30); Chloride 103 mmol/L (98-107); Estimated Creatinine Clearance 98 ml/min; Glucose 81 mg/dl (70-99); Potassium 4.3 mmol/L (3.5-5.1); Sodium 137 mmol/L (135-145); Total Bilirubin 1.2 mg/dl (0.2-1.3); Total Protein 7.2 g/dl (6.3-8.2); eGFR > 60.00
--- NOTE | 2025-03-26 19:59 | ED.GENMED ---
History of Present Illness
<Luis Colin PA-C - Last Filed: 03/26/25 21:16>
General
Chief Complaint: Visual Problem
Source: patient
Time Seen by Provider: 03/26/25 19:35
History of Present Illness
History of Present Illness:
59-year-old female with past medical history of recent acute VT status post LAD stenting with multiple complications, still has an apical thrombus, on Eliquis and Plavix presenting to the emergency department for evaluation after waking up 2 days
ago and noting that both eyes were very blurry stating her son came into the room and she was seeing 2 of them. The visual disturbance has been relatively constant although she does note brief periods where her vision does seem to be a little bit
clear and there is also associated mild headache. Patient does have a history of migraines but states this headache feels very than her typical type of headache. She reports that after getting home from her cardiac event she has been feeling
overall pretty good. Denies any focal weakness or numbness, current chest pain or shortness of breath, abdominal pain, nausea, vomit or any other concerns.
Past History
<Luis Colin PA-C - Last Filed: 03/26/25 21:16>
Past History
ED Past Medical History: HTN, VT, Psychiatric and Other (Migraine headaches)
ED Past Surgical History: Cholecystectomy and Gynecological (Hysterectomy)
Social History
Tobacco: Non-smoker
Alcohol: Occasional (Rare)
Drug: None
Personal:
Living: with family
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
Family History
Family History: CAD
Review of Systems
<DARCIE uMñoz Last Filed: 03/26/25 21:16>
Review of Systems
All Other Systems: ROS reviewed and negative except as documented in HPI and ROS
Phy Exam
<Luis Colin PA-C - Last Filed: 03/26/25 21:16>
Physical Exam
Physical Exam:
GENERAL: Alert , in no apparent distress
HEAD: NCAT
EYE: pupils equal and reactive, clear conjunctiva, pupils 4 mm bilateral, no field cuts
NECK: Supple
ENT: o/p clr, mmm.
CARDIAC: Regular rate and rhythm .
LUNGS: Clear breath sounds bilaterally, no acute respiratory distress, no wheezes/rales/rhonchi
NEUROLOGICAL: Alert and oriented, no focal neuro deficits, no dysmetria or dysarthria, no aphasia, no ataxia
SKIN: Warm and dry, skin intact.
MUSCULOSKELETAL: No edema, well perfused.
PSYCH: Normal and appropriate interaction.
Scores
<Luis Colin PA-C - Last Filed: 03/26/25 21:16>
NIH Stroke Score
Level of Consciousness: 0 - Alert
LOC Questions: 0-Answers both correctly
LOC Commands: 0-Performs both correctly
Best Horizontal Gaze: 0-Normal
Visual Moreno: 0=Normal, no visual loss
Facial Palsy: 0=Normal, symmetrical
Motor - Right Arm: 0=No drift 10 seconds
Motor - Left Arm: 0=No drift 10 seconds
Motor - Right Le-No drift 5 seconds
Motor - Left Le-No drift 5 seconds
Limb Ataxia: 0-Absent
Sensation: 0-Normal
Best Language: 0-No aphasia
Dysarthria: 0-Normal
Extinction and Inattention: 0-No abnormality
Total Score:: 0
Heart Failure Risk
Heart Failure Risk Score: Not Applicable
Heart Score for Chest Pain Patients
STEMI patient?: Not applicable
Withdrawal Assessment of Alcohol
Withdrawal Assessment Completed?: Not applicable
<Loraine Rutledge DO - Last Filed: 03/26/25 22:36>
NIH Stroke Score
Total Score:: 0
Course
<uLis Colin PA-C - Last Filed: 03/26/25 21:16>
Orders/Labs/Results
Orders:
Orders
03/26/25 17:23
CT Head W/o Iv Contrast Urgent
Comment:
Reason For Exam: blurry and double vision x2 days
03/26/25 19:13
Electrocardiogram (*1) Urgent
Reason for Study: TIA/Stroke
03/26/25 19:14
EKG- Treatment ONCE
03/26/25 19:31
0.9% Sodium Chloride 500 ml [Nss] 500 ml IV BOLUS
03/26/25 19:32
Complete Blood Count/No Diff Urgent
Comprehensive Metabolic Panel Urgent
PT/INR [Prothrombin Time] Urgent
03/26/25 19:46
CT Head & Neck Angio W/wo IV Urgent
Comment:
Reason For Exam: bilateral blurred vision
03/26/25 20:42
Apixaban [Eliquis] 5 mg PO NOW STA
Atorvastatin [Lipitor] 80 mg PO NOW STA
03/26/25 20:51
Sacubitril 24/Valsartan 26 [Entresto 24 mg/26 mg] 1 tab PO NOW STA
03/26/25 21:14
Admit/Transfer Patient As Directed
Co-Sign Provider:
Level of Care: Inpatient admission
Assign to:: Telemetry
Physician / Group: martha
Diagnosis: diplopia,
Reason for Telemetry: Arrhythmia
Date to Stop Telemetry: 03/29/25
Time to Stop Telemetry: 11:00
Reason for Hospitalization: diplopia
Expected length of stay greater than two midnights?: Yes
ELOS- Estimated Length of Stay in days: 2
I certify the patient meets the requirements for IP care: Yes
PRN Pain Medication Management As Directed
May give lesser potent ordered pain med per pt: Yes
preference::
Protocol:: Medication orders for pain may be administered in a
manner that supports deferring to patient preference
when the pt is:
- Requesting an ordered lesser potent pain medication.
Least to most potent pain medications are defined
as: acetaminophen < NSAID < tramadol < opioids
(morphine, oxycodone, hydromorphone).
- Requesting a lesser dose of the same medication IF
ORDERED.
- Requesting a less intrusive route of administration
if both routes are prescribed by the provider (PO <
IV).
03/26/25 21:15
Code Status As Directed
Resuscitation Status: Full Code
03/26/25 21:22
Acetaminophen [Tylenol] 650 mg .ROUTE .STK-MED ONE
03/26/25 21:28
Acetaminophen [Tylenol] 650 mg PO NOW STA
03/26/25 22:00
Flush (0.9% Sodium Chloride) [Flush (Nss)] See Dose Instructions IV PER PROTOCOL
03/29/25 11:00
DC Protocol for Telemetry ONCE
Abnormal Lab Results
03/26/25
19:32
RBC 4.19 L 10^6/uL
(4.20-5.40)
Hct 36.2 L %
(37.0-47.0)
RDW 16.0 H %
(11.5-14.5)
PT 15.3 H Sec
(11.4-14.6)
03/26/25 19:32
03/26/25 19:32
Vital Signs
Initial and Last Documented VS:
Initial Vital Signs
Temp Pulse Resp BP Pulse Ox
98.8 F 86 16 119/86 95
03/26/25 17:42 03/26/25 17:42 03/26/25 17:42 03/26/25 17:42 03/26/25 17:42
Last Documented Vital Signs
Temp Pulse Resp BP Pulse Ox
98.8 F 85 19 91/62 99
03/26/25 17:42 03/26/25 21:56 03/26/25 21:30 03/26/25 21:25 03/26/25 21:56
<Loraine Rutledge, DO - Last Filed: 03/26/25 22:36>
Orders/Labs/Results
Orders:
Orders
03/26/25 17:23
CT Head W/o Iv Contrast Urgent
Comment:
Reason For Exam: blurry and double vision x2 days
03/26/25 19:13
Electrocardiogram (*1) Urgent
Reason for Study: TIA/Stroke
03/26/25 19:14
EKG- Treatment ONCE
03/26/25 19:31
0.9% Sodium Chloride 500 ml [Nss] 500 ml IV BOLUS
03/26/25 19:32
Complete Blood Count/No Diff Urgent
Comprehensive Metabolic Panel Urgent
PT/INR [Prothrombin Time] Urgent
03/26/25 19:46
CT Head & Neck Angio W/wo IV Urgent
Comment:
Reason For Exam: bilateral blurred vision
03/26/25 20:42
Apixaban [Eliquis] 5 mg PO NOW STA
Atorvastatin [Lipitor] 80 mg PO NOW STA
03/26/25 20:51
Sacubitril 24/Valsartan 26 [Entresto 24 mg/26 mg] 1 tab PO NOW STA
03/26/25 21:14
Admit/Transfer Patient As Directed
Co-Sign Provider:
Level of Care: Inpatient admission
Assign to:: Telemetry
Physician / Group: martha
Diagnosis: diplopia,
Reason for Telemetry: Arrhythmia
Date to Stop Telemetry: 03/29/25
Time to Stop Telemetry: 11:00
Reason for Hospitalization: diplopia
Expected length of stay greater than two midnights?: Yes
ELOS- Estimated Length of Stay in days: 2
I certify the patient meets the requirements for IP care: Yes
PRN Pain Medication Management As Directed
May give lesser potent ordered pain med per pt: Yes
preference::
Protocol:: Medication orders for pain may be administered in a
manner that supports deferring to patient preference
when the pt is:
- Requesting an ordered lesser potent pain medication.
Least to most potent pain medications are defined
as: acetaminophen < NSAID < tramadol < opioids
(morphine, oxycodone, hydromorphone).
- Requesting a lesser dose of the same medication IF
ORDERED.
- Requesting a less intrusive route of administration
if both routes are prescribed by the provider (PO <
IV).
03/26/25 21:15
Code Status As Directed
Resuscitation Status: Full Code
03/26/25 21:22
Acetaminophen [Tylenol] 650 mg .ROUTE .STK-MED ONE
03/26/25 21:28
Acetaminophen [Tylenol] 650 mg PO NOW STA
03/26/25 22:00
Flush (0.9% Sodium Chloride) [Flush (Nss)] See Dose Instructions IV PER PROTOCOL
03/29/25 11:00
DC Protocol for Telemetry ONCE
Abnormal Lab Results
03/26/25
19:32
RBC 4.19 L 10^6/uL
(4.20-5.40)
Hct 36.2 L %
(37.0-47.0)
RDW 16.0 H %
(11.5-14.5)
PT 15.3 H Sec
(11.4-14.6)
03/26/25 19:32
03/26/25 19:32
Vital Signs
Initial and Last Documented VS:
Initial Vital Signs
Temp Pulse Resp BP Pulse Ox
98.8 F 86 16 119/86 95
03/26/25 17:42 03/26/25 17:42 03/26/25 17:42 03/26/25 17:42 03/26/25 17:42
Last Documented Vital Signs
Temp Pulse Resp BP Pulse Ox
98.8 F 85 19 91/62 99
03/26/25 17:42 03/26/25 21:56 03/26/25 21:30 03/26/25 21:25 03/26/25 21:56
<Luis Colin PA-C - Last Filed: 03/26/25 21:16>
MDM/Problems Addressed
Differential Diagnosis Includes:
CVA, intracranial bleeding, malignancy, retinal complication, aneurysm
MDM/Problems Addressed:
59-year-old female presenting to the emergency department for evaluation of bilateral blurred vision for the last 2 days. Recently had complicated VT resulting in need for transfer to [facility] where patient had an LVAD and ECMO performed. Still with
apical thrombus. Anticoagulated on Eliquis and Plavix. Physical exam is reassuring outside of patient being hypotensive. 500 mL bolus of normal saline solution ordered. CT of the head was ordered on arrival and negative for any acute
intracranial pathology. I did discuss the case with neurology who is requesting a CTA be ordered, admit with plans for MRI tomorrow. Patient is already anticoagulated on Eliquis and Plavix so no further anticoagulants to be ordered.
Chronic conditions affecting care: Other (Recent acute VT)
<Luis Colin PA-C - Last Filed: 03/26/25 21:16>
*Radiology
Radiology exam reviewed: radiology read reviewed
*Pulse Oximetry
Patient hypoxic: no
*EKG
Heart Rate: 77
Rate: normal
Rhythm: sinus
Ischemia: other (Q waves within the septal leads)
*Bridge Expert Interpretation
Rate: normal
Rhythm: sinus
*Critical Care Note
Total Time (30-74mins, 75-104mins- exclusive of procedures): Not Applicable
<Luis Colin PA-C - Last Filed: 03/26/25 21:16>
Patient Management
Discussion with other providers: Hospitalist and Social Service Assistant
Escalation/DeEscalation of care consider admission/obs:
Hospitalist team to admit.
ED Attending Note
<Luis Colin PA-C - Last Filed: 03/26/25 21:16>
-
Portions of this chart may have been created with voice recognition software.� Occasional wrong word or��sound alike� substitutions may have occurred due to the inherent limitations of voice recognition software.
<Loraine Rutledge DO - Last Filed: 03/26/25 22:36>
ED Attending Note
Patient seen and examined by attending physician: Yes
I performed the substantive portion of visit, reviewed & personally made and approve the management plan that is documented in note by myself or VENU.: Yes
I performed a history and physical exam of patient and discussed management with resident, I reviewed resident's note and agree with documented findings and plan of care.: Yes
ED Attending Note:
59-year-old female with recent cardiac event requiring stent x 2 at [facility] presenting to the emergency department for double vision and blurred vision. Patient reports that she was released from [facility] on the . She is currently on aspirin and
Plavix. 2 days ago she started to have double vision as well as blurred vision. She does wear glasses at baseline. Denies any trauma or recent injury. Denies weakness or numbness to her extremities or any history of stroke. Denies fever. Vital
signs are normal. Patient sent in by her doctor for concern of acute stroke.
On exam patient is resting comfortably, no acute distress comfort. Patient moving all extremities equally, no sensory deficits. Extraocular movements are intact, pupils are equal and reactive. Peripheral moreno are full, however patient continues
to report blurred vision and double vision. In the setting of double vision with recent cardiac event, embolic stroke is a consideration. Initial CT brain imaging is negative. Plan for CT angio and ultimately admission for neurology consultation
and MRI.
Discharge Plan
Departure
Patient Disposition: Admit
Date of Disposition: 03/26/25
Time of Disposition: 20:51
Presentation/result/management discussed w/ accepting MD/DO: Hospitalist
Discharge Problem:
Visual disturbance, Hypotension, unspecified
Interventions
Interventions:
*Risk Screen - Suicide Last Done: 03/26/25 17:42
*General Assessment Last Done: 03/26/25 18:54
*Neglect/Abuse Screening Last Done: 03/26/25 17:42
*ED- Fall Risk Assessment Last Done: 03/26/25 18:54
*ED COVID-19 Vaccine History Last Done: 03/26/25 18:54
ED- Neurological Assessment Last Done: 03/26/25 19:00
--- NOTE | 2025-03-26 21:19 | HPS.HSE ---
Family Physician
-
Family Physician: Paulina Millan
Chief Complaint
-
diplopia
History of Present Illness
59-year-old female past medical history of recent STEMI status post stent complicated by cardiogenic shock status post Impella and complicated by complete heart block status post temporary pacemaker and later transferred to [facility] status post
temporary LVAD and ECMO and ICD, history of apical thrombus, presents with bilateral blurred vision for 2 days as well as double vision.
Patient has a history of frequent complex migraines usually accompanied by headache and vertigo. 2 days ago she developed bilateral blurry vision with headache which she thought was a migraine however she had double vision with both of her eyes
open which she thought was unusual for her history of migraines. She denies any light sensitivity or aura or nausea or vomiting. Headache is described as bilateral aching around her skull. Migraines usually respond to ibuprofen however she is not
allowed to take this due to her recent cardiac history.
She denies any focal tingling or numbness or vertigo or difficulty swallowing or facial droop or difficulty ambulating. She has a chronic nystagmus with leftward gaze which is not new as per her.
She denies any chest pain or shortness of breath or lower extremity edema.
She denies smoking or alcohol use.
Significant family history of cardiac problems in her father. No family history of strokes.
Medical History
Past Medical History
Past Medical History: Reports Other (recent STEMI status post stent complicated by cardiogenic shock status post Impella and complicated by complete heart block status post temporary pacemaker and later transferred to [facility] status post temporary LVAD
and ECMO and ICD, history of apical thrombus)
Past Surgical History: Reports Other (ICD )
Social History
Tobacco: Non-smoker
Alcohol: None
Drug: None
Family History
Family History: Not pertinent
Allergies / Home Medications
Allergies reflects when Allergies were last updated in [facility].
Home Medications with original date entered in [facility]
Allergy/Medication List:
Allergies
Allergy/AdvReac Type Severity Reaction Status Date / Time
No Known Allergies Allergy Verified 03/26/25 18:54
Home Medications
bupropion HCl 300 mg 24 hr tablet, extended release 300 mg PO DAILY 11/15/17
topiramate 25 mg tablet (Topamax) 25 mg PO DAILY 02/26/25
venlafaxine 75 mg tablet 225 mg PO DAILY 02/26/25
apixaban 5 mg tablet (Eliquis) 5 mg PO BID 03/26/25
atorvastatin 80 mg tablet (Lipitor) 80 mg PO HS 03/26/25
clopidogrel 75 mg tablet (Plavix) 75 mg PO DAILY 03/26/25
empagliflozin 10 mg tablet (Jardiance) 10 mg PO DAILY 03/26/25
famotidine 20 mg tablet (Pepcid) 20 mg PO BID 03/26/25
furosemide 20 mg tablet (Lasix) 20 mg PO DAILY 03/26/25
metoprolol succinate 25 mg tablet,extended release 24 hr (Toprol XL) 12.5 mg PO DAILY 03/26/25
sacubitril 24 mg-valsartan 26 mg tablet (Entresto) 1 tab PO BID 03/26/25
spironolactone 25 mg tablet 12.5 mg PO DAILY 03/26/25
Review of Systems
-
History Source: Patient
A 12 point ROS was completed and negative except as noted: Yes
Constitutional: Reports No Symptoms
EENT: Reports No Symptoms
Respiratory: Reports No Symptoms
Cardiac: Reports No Symptoms
Abdomen/GI: Reports No Symptoms
: Reports No Symptoms
Musculoskeletal: Reports No Symptoms
Skin: Reports No Symptoms
Neurological: Reports See HPI
Endocrine: Reports No Symptoms
Hematologic/Lymphatic: Reports No Symptoms
Psych: Reports No Symptoms
Physical Exam
Vital Signs
Vital Signs
Temp Pulse Resp BP Pulse Ox
98.8 F 77 17 95/63 98
03/26/25 17:42 03/26/25 20:45 03/26/25 20:45 03/26/25 20:00 03/26/25 20:45
Physical Exam
General: Well Developed, Well Nourished and No Apparent Distress
HEENT: NormoCephalic, Moist mucous membranes and Atraumatic
Respiratory: Clear
Cardiac: S1/S2 and Regular Rhythm; No Murmur or Rub
GI: Soft, Non Tender, Non Distended and Normal Bowel Sounds; No Organomegaly
Rectal: Deferred by Provider
Musculoskeletal: No Clubbing, No Cyanosis and No Edema
Skin: No Rash
Neuro: Nonfocal/grossly intact and Other (nystagmus leftward gaze )
Laboratory Results
-
03/26/25 19:32
03/26/25 19:32
Laboratory Results
PT 15.3 Sec (11.4-14.6) H 03/26/25 19:32
INR 1.16 03/26/25 19:32
Total Bilirubin 1.2 mg/dl (0.2-1.3) 03/26/25 19:32
AST 30 U/L (14-36) 03/26/25 19:32
ALT 23 U/L (0-35) 03/26/25 19:32
Alkaline Phosphatase 102 U/L (38-126) 03/26/25 19:32
Data Reviewed
-
Lab Data: Labs Reviewed by me
Old Records: Reviewed
Impression/Plan
-
IMPRESSION:
PLAN:
# New onset of diplopia and bilateral blurred vision possibly complex migraine rule out CVA given recent history of apical thrombus
# History of complex migraines
# History of known nystagmus with leftward gaze
- CT head shows no acute intracranial abnormality
- CTA head and neck pending
- Check MRI brain
- Continue Eliquis, Plavix
- Tylenol for headache
- Continue Topamax
- Neurology consult
# Hypotension likely secondary to cardiac medications
-IV fluid bolus was given
- Hold Entresto, spironolactone, Jardiance, Lasix for now
#History of STEMI complicated by cardiogenic shock status post Impella and temporary LVAD and ECMO also complicated by heart block status post temporary pacemaker
# ICD placement
- Continue Plavix, statin
- Continue metoprolol
Ischemic cardiomyopathy
- Echo from February shows EF of 20 to 25%, no thrombus was seen at that time
- Continue Jardiance
- Hold Lasix
History of apical thrombus
- Continue Eliquis
Anxiety/depression
- Continue venlafaxine
GERD
-continue Pepcid
Full code
DVT prophylaxis�Eliquis
Regular diet
[2025-03-26] MEDS: LIPITOR 80 MG PO (21:25)
[2025-03-26] MEDS: ELIQUIS 5 MG PO (21:27)
[2025-03-26] MEDS: TYLENOL 650 MG PO (21:28)
[2025-03-26] MEDS: LIPITOR PO (23:21)
[2025-03-27] VITALS (8 sets, daily range): BP systolic 84–111; BP diastolic 50–71; PULSE 81; BMI 33.8
--- NOTE | 2025-03-27 00:16 | PTCARENOTE ---
03/26 at 2250 > Patient arrived via stretcher with belongings; Admitted for diplopia; telemetry orders> Sinus rhythm w/ BBC on monitor-strip placed in chart. VSS> afebrile, HR 76, RR 18, BP 111/68, pox 100% room air. Pt administered Tylenol in the ED
for a headache. Current 03/05.
x2 IV sites #20 RFA, #20 Rhand. S/p ICD. Pt states she was diagnosed with sleep apnea, but do to cost, does not currently utilize device (CPAP) at home. Patient states that a sleep study is scheduled in April. PMH and medications reviewed by this RN
and patient. Patient ordered MRI brain but will require Ativan 0.5mg IV prior. Plan of care discussed. Call knight within reach.
--- NOTE | 2025-03-27 03:14 | PTCARENOTE ---
Addendum entered by Karen Head RN 03/27/25 03:34:
House SUPERVISOR [employer] made aware. No new orders at this time.
Original Note:
Patient's monitoring coordinator alarmed Tachycardia HR 140-170s- strip placed in chart. Pt assessed and states that she's has palpitations. Pt states Cardiology is aware of this.
[2025-03-27 07:27] LABS: % Basophils 0.7 % (0-2); % Eosinophils 2.8 % (0-6); % Immature Granulocytes 0.6 % (0-0.5); % Lymphocytes 30.8 % (20.5-51.1); % Monocytes 8.8 % (1.7-9.3); % Neutrophils 56.3 % (42.2-75.2); Absolute Eosinophils 0.2 10^3/uL (0-0.7); Absolute Lymphocytes 1.7 10^3/uL (1.2-3.4); Absolute Monocytes 0.5 10^3/uL (0.1-0.6); Absolute Neutrophils 3.1 10^3/uL (1.4-6.5); Hematocrit 37.1 % (37.0-47.0); Hemoglobin 11.8 g/dL (12.0-16.0); Mean Corp Hgb Conc. 31.8 g/dL (33.0-37.0); Mean Corpuscular Hgb 28.3 pg (27.0-31.0); Mean Platelet Volume 10.1 fL (7.4-10.4); Nucleated Red Blood Cells % 0 %; Platelet Count 260 10^3/uL (130-400); Red Blood Cell Count 4.17 10^6/uL (4.20-5.40); Red Cell Dist. Width 16.1 % (11.5-14.5); White Blood Cell Count 5.5 10^3/uL (4.8-10.8)
--- NOTE | 2025-03-27 08:42 | CON.NEURO4 ---
Addendum entered and electronically signed by Efe Tucker MD 03/27/25 11:54:
Studies reviewed.
I have personally examined the patient. I reviewed and agree with the PUMPING PLANT OPERATOR's Note.
My addenda:
Awake, alert, interactive. No acute distress.
Speech intact.
Follows 2-step requests w/o difficulty. No tremor.
Extra-ocular movements with bilateral restriction of lateral gaze and resolution of diplopia with near gaze
Facial movements full and symmetric. Hearing intact to normal conversational volume.
Normal UE movements bilaterally.
Neck: full ROM.
Chest: no dyspnea
Heart: no JVD
Ext: (-) Clubbing, (-) Cyanosis, (-) Edema
IMPRESSIONS/RECOMMENDATIONS:
Abrupt onset of diplopia and associated with headache onset
Differential diagnosis includes migraine with aura which the patient has been experiencing chronically as well as acute ischemic stroke involving brainstem which is less likely based on absence of additional symptoms and the symmetry of the
patient's gaze restrictions bilaterally. Additional differential would include thiamine deficiency
Unable to check MRI brain due to recent pacemaker placement
Provide loading dose of topiramate then topiramate 25 mg twice a day
Provide prochlorperazine in hopes of controlling headache
Continue patient on current apixaban and clopidogrel utilized for cardiac reasons
Continue atorvastatin 80 mg daily
Check additional blood work for metabolic causes
Provide thiamine
D/W patient
Will continue to follow patient.
Original Note:
Documented by User: Meli Mack NP 03/27/25 11:45
Consultation - Neurology 4
-
CONSULTING PHYSICIAN: Efe Tucker MD
REFERRING PHYSICIAN: Hospitalists/Dr. Madison
DICTATED BY: HANNAH Willoughby
DATE/TIME OF REQUEST: 03/26/25
DATE/TIME OF CONSULTATION: 03/27/25
Reason for Consultation: Diplopia
History of Present Illness:
This is a 59-year-old female who has presented to the hospital with report of diplopia. In February 2025 patient was found to be in complete heart block with an anterolateral STEMI and underwent LAD stenting at . Following cardiac cath she continued
to have severe LV dysfunction and developed cardiogenic shock. She was transferred to [facility] on 02/26/25 where she underwent RCA stenting. On 03/06/25 she went into VT and progressed to VF arrest. She was shocked twice with islam of NSR and was
intubated. She then underwent ICD placement. Repeat echocardiogram demonstrated an apical LV thrombus after pacemaker placement and apixaban was initiated. She reports having been back to her baseline except for feeling deconditioned. Three days
ago on 03/24/25 she reports waking up in the morning with blurry vision and a sense of dizziness. Her son entered her room and she saw two of him. Her blurry vision and diplopia has persisted since onset. It is constant, although slightly worse in
the morning compared to later in the day. She reports seeing objects at a distance side by side. She denies any diplopia when looking at close objects. Her double vision resolves with closing one eye. Occasionally the object on the right will be
moving outward laterally. CT head and CTA head/neck were obtained on arrival in the ER on 03/26/25 and are negative for any acute abnormalities. She was not a candidate for TNK/IAT due to apixaban compliance and no LVO.
She notes a history of migraine headaches since her 's. She had one migraine in 2022 associated with severe vertigo, this was the only complicated migraine she has ever had. Her usual migraines consist of a posterior head discomfort and can be
associated with blurry vision; she has never had diplopia before. She is not followed by a Neurologist but has taken Topamax 25mg daily for years for headache prevention, it used to be helpful but more recently has not been lessening headaches. She
used to take Motrin for headache relief, but can no longer take this due to being on apixaban/clopidogrel. She currently had a dull/heavy headache sensation at the front/top of her head. She rates this a 5-6/10. She has been taking Tylenol with
minimal relief of discomfort. She denies any neck/back pain, speech/swallow difficulty, bowel/bladder changes, tinnitus/hearing loss, numbness, and weakness. She has no history of TIA, stroke, or events similar to this in the past.
Past Medical History: STEMI 02/2025 (clopidogrel), apical thrombus (Eliquis), HTN, HLD, ADHD, anxiety, depression, complicated migraine, ruptured eardrum on the right
Surgical History: LAD, RCA stent, ICD, cholecystectomy, left breast biopsy, hysterectomy
Family History: Paternal grandmother- stroke. Maternal grandfather- stroke. Maternal grandmother- migraines.
Social History: Denies tobacco and illicit drug use. Rare alcohol.
Allergies: No known allergies.
Home Medications: See below.
Review of Symptoms:
Patient denies any fever, headache, chest pain, shortness of breath, GI or symptoms.
�Per the HPI.�All systems are reviewed negative except above.
Physical Exam:
The patient is afebrile, abdomen is nondistended, breathing is unlabored, skin is warm and dry, no edema.
NIH Stroke Scale:
I performed the NIH stroke scale on the patient on 03/27/25 at 0900. The patient scored 1 points on the NIH stroke scale assessment, which were assigned as follows: See below.
Neurologic Examination:
The patient is awake, alert and oriented x 3. She is able to follow commands and answer questions appropriately. There is no aphasia or dysarthria. On cranial nerve assessment, pupils are 3 mm bilateral, round and reactive to light and
accommodation. Visual moreno are full. There is a bilateral CN palsy. There is no micronystagmus. Facial sensations are intact and bilaterally symmetrical, there is no facial asymmetry. Hearing is intact bilaterally to normal conversation volume.
Tongue palate and uvula are midline. Sternocleidomastoid strengths are full bilaterally. Motor strengths are 5/5 bilateral upper and lower extremities on medical research [place] scale. There is no drift or involuntary movement noted. Deep tendon
reflexes are 2+ bilateral upper and lower extremities and Babinski is absent bilaterally. There was no extinction noted on double simultaneous stimulation. Coordination is intact by finger to nose bilaterally.
Lab Results: See below.
Neuro Imaging:
1. CT Head 03/26/25: No acute intracranial abnormality noted.
2. CTA Head/Neck 03/26/25: The cervical carotid and vertebral arteries are patent without significant plaque, stenosis, occlusion, or dissection. No [place] region aneurysm or stenosis. No cerebral artery significant plaque, stenosis,
thrombus, or occlusion.
Differentials for the patient's presentation include:
1. Bilateral CN 6 palsy; unclear etiology, possibilities include complicated migraine given migraines originate from the brainstem, brainstem stroke, vs thiamine deficiency.
2. Apical thrombus, on apixaban. Cardiac stent, on clopidogrel.
3. HTN.
Patient has the following risk factors for their symptoms: Hx complicated migraine, HTN, apical thrombus.
IV Tenecteplase/IAT candidacy: Not a candidate due to apixaban usage, outside of time window, no LVO.
Recommendations:
-Would like to obtain MRI Brain noncontrast but patient has a new pacemaker and this cannot be done within the first 6 weeks of ICD placement. Okay to obtain MRI brain noncontrast as an outpatient.
-Continue apixaban/clopidogrel per Cardiology.
-Prochlorperazine 10mg IV, diphenhydramine 25mg IV, and topamax 100mg PO x1 now for headache relief.
-Increase Topamax to 25mg BID for headache prevention
-Cannot have caffeine due to cardiac issues.
-Goal normotension.
-Goal normoglycemia, hbA1c is 5.7.
-LDL goal <70. LDL is 68. Continue atorvastatin 80mg daily.
-Checking blood work for metabolic abnormalities.
-Provide patient with a stroke education packet.
-Provide thiamine 100mg PO daily.
-Can follow-up with Dr. Lupe Browne gas load dispatcher [place] as an outpatient for assistance with diplopia.
-Would like to start on rimegepant for migraines. Follow-up with Neurology as an outpatient.
Discussed patient care with: Dr. Tucker, the patient
Vital Signs and Labs
-
Vital Signs and Labs:
Vital Signs
Temp Pulse Resp BP Pulse Ox
97 F 80 18 97/52 97
03/27/25 03:15 03/27/25 03:15 03/27/25 03:15 03/27/25 03:06 03/27/25 03:15
Lab Results
03/27/25 07:15
PT 15.3 Sec (11.4-14.6) H 03/26/25 19:32
INR 1.16 03/26/25 19:32
Sodium 137 mmol/L (135-145) 03/26/25 19:32
Potassium 4.3 mmol/L (3.5-5.1) 03/26/25 19:32
BUN 16 mg/dl (7-17) 03/26/25 19:32
Glucose 81 mg/dl (70-99) 03/26/25 19:32
Calcium 9.5 mg/dl (8.4-10.2) 03/26/25 19:32
Medications
-
Medications:
Generic Name Dose Route Start Last Admin
Trade Name Freq PRN Reason Stop Dose Admin
Acetaminophen 650 mg 03/26/25 22:57
Acetaminophen 325 Mg Tablet PO 04/23/25 22:56
Q4HPRN PRN
mild pain/CASTILLO/temp> 100.4F
Apixaban 5 mg 03/27/25 08:00
Apixaban (Eliquis) 5 Mg Tablet PO 04/24/25 07:59
BID HUGO
Atorvastatin Calcium 80 mg 03/26/25 22:57 03/26/25 23:21
Atorvastatin (Lipitor) 80 Mg Tablet PO 04/23/25 22:56 Not Given
HS HUGO
Bupropion HCl 300 mg 03/27/25 08:00
Bupropion (24hr) Extended Release 300 Mg Tablet PO 04/24/25 07:59
DAILY HUGO
Clopidogrel Bisulfate 75 mg 03/27/25 08:00
Clopidogrel 75 Mg Tablet PO 04/24/25 07:59
DAILY HUGO
Famotidine 20 mg 03/27/25 08:00
Famotidine 20 Mg Tablet PO 04/24/25 07:59
BID HUGO
Metoprolol Succinate 12.5 mg 03/27/25 08:00
Metoprolol 12.5 Mg Extended Release Dose (1/2 Of 25 Mg Xl Tablet) PO 04/24/25 07:59
DAILY HUGO
Sodium Chloride 0 flush 03/26/25 22:00
Sodium Chloride 0.9% (Flush) Syringe IV 04/23/25 21:59
PER PROTOCOL HUGO
Topiramate 25 mg 03/27/25 08:00
Topiramate 25 Mg Tablet PO 04/24/25 07:59
DAILY HUGO
Venlafaxine HCl 225 mg 03/27/25 08:00
Venlafaxine 75 Mg Extended Release Capsule PO 04/24/25 07:59
DAILY HUGO
NIH Stroke Score
Subsequent NIH Scale
Date of Subsequent NIH Scale: 03/27/25
Time of Subsequent NIH Scale: 09:00
NIH Stroke Score
Level of Consciousness: 0 - Alert
LOC Questions: 0-Answers both correctly
LOC Commands: 0-Performs both correctly
Best Horizontal Gaze: 1-Partial gaze palsy
Visual Moreno: 0=Normal, no visual loss
Facial Palsy: 0=Normal, symmetrical
Motor - Right Arm: 0=No drift 10 seconds
Motor - Left Arm: 0=No drift 10 seconds
Motor - Right Le-No drift 5 seconds
Motor - Left Le-No drift 5 seconds
Limb Ataxia: 0-Absent
Sensation: 0-Normal
Best Language: 0-No aphasia
Dysarthria: 0-Normal
Extinction and Inattention: 0-No abnormality
Total Score:: 1
Modified Bond (mRS) Score
Modified [place] Scale (mRS): No significant disability. Able to carry out usual activities.
Score: 1
Alteplase Contraindication
Inclusion and Exclusion criteria reviewed: Yes
Reasons for NON-Tx with Thrombolytics ABSOLUTE Exclusions: Greater than 4.5 hrs from onset of sxs
IAT Contraindications: NIHSS < 6 and Imaging doesn't show large vessel occlusion as cause of stroke

Documented by User: Efe Tucker MD 03/27/25 11:46
NIH Stroke Score
NIH Stroke Score
Total Score:: 1
Modified Bond (mRS) Score
Score: 1
[2025-03-27] MEDS: ELIQUIS 5 MG PO ×2 (09:23→20:27)
[2025-03-27] MEDS: WELLBUTRIN XL (24 hour extended release) 300 MG PO (09:23)
[2025-03-27] MEDS: EFFEXOR XR 225 MG PO (09:23)
[2025-03-27] MEDS: PLAVIX 75 MG PO (09:23)
[2025-03-27] MEDS: TOPROL XL 12.5 MG PO (09:23)
[2025-03-27] MEDS: PEPCID 20 MG PO ×2 (09:23→20:27)
[2025-03-27 09:24] LABS: ALT (SGPT) 21 U/L (0-35); AST (SGOT) 20 U/L (14-36); Albumin 4.1 g/dl (3.5-5.0); Alkaline Phosphatase 105 U/L (38-126); Blood Urea Nitrogen 14 mg/dl (7-17); Calcium 9.4 mg/dl (8.4-10.2); Carbon Dioxide 22 mmol/L (22-30); Chloride 107 mmol/L (98-107); Estimated Creatinine Clearance 96 ml/min; Glucose 86 mg/dl (70-99); Magnesium 2.2 mg/dl (1.6-2.3); Potassium 4.2 mmol/L (3.5-5.1); Sodium 142 mmol/L (135-145); Total Bilirubin 0.8 mg/dl (0.2-1.3); Total Protein 6.5 g/dl (6.3-8.2); eGFR > 60.00
[2025-03-27] MEDS: BENADRYL 25 MG IV (09:25)
[2025-03-27] MEDS: COMPAZINE 10 MG IV (09:25)
[2025-03-27] MEDS: TOPAMAX 100 MG PO (09:36)
--- NOTE | 2025-03-27 11:04 | CM ---
CM following re: discharge planning.
Reviewed pt' chart, met with pt.
Pt is a 59 year old female, admitted with primary dx of New onset of diplopia and bilateral blurred vision possibly complex migraine rule out CVA given recent history of apical thrombus.
Pt reports she lives with and 2 children 2SH, 2 steps to enter. 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
PCP: Paulina Pulido
Pharmacy: [facility]
D/C plan: home with anticipated no needs.
CM will follow with discharge plan updates as hospitalization progresses
--- NOTE | 2025-03-27 13:23 | W.PN.HOSP.TC ---
Today's Communication/Plan
-
Continue Plavix/Eliquis/statin
Continue thiamine
Continue topiramate and migraine regimen
Hold Lasix/ARNI/MRA/SGLT2
Judicious IVF as needed
Consider repeat CT head
Neurochecks and NIHSS
Assessment / Plan
Assessment / Plan
#Diplopia
#Strokelike symptoms
#H/O cardiac apical thrombus
-Per neurology differentials include migraine with aura, ischemic CVA, thiamine deficiency
-Also question hypotensive component with extensive GDMT, low BP on arrival
-Initial CT head without acute findings; CTA head and neck unremarkable
-MRI was ordered however unable to be obtained as AICD < 6-week old
-Remains with mild visual blurriness today, accompanied by headache
-NIHSS score 1; was started on thiamine supplement and topiramate/migraine regimen by neuro
Plan
-Continue migraine regimen and topiramate
-Continue with thiamine supplement
-Continue home Eliquis, Plavix, statin
-Continue neurochecks and NIHSS for now
-Consider repeat CT after 24 to 48-hours
#Hypotension
-Likely secondary to GDMT for HFrEF; presented with BP 84/85 mmHg that improved with light IVF
-Holding Entresto, MRA, SGLT2 inhibitor, and Lasix for now; blood pressure improved with SBP high 90s
-Remains euvolemic on exam as of this morning
-Question if blurry vision was related to low BP
Plan
-Continue to hold home meds pending improved BP
-Judicious IVF for episodes of hypotension
-Plan to resume GDMT sequentially
-Monitor I's/O's and weights off Lasix
-Consider cardiology consult
#Chronic HFrEF
#Ischemic dilated cardiomyopathy
#CAD s/p LAD STEMI with PCI
-Most recent echocardiogram with LVEF 25%; status post AICD
-Recent complicated hospital course with LAD STEMI complicated by cardiogenic shock
-Ultimately required transfer to [facility] where she had ECMO, LVAD, Impella in place, TVP
-GDMT regimen includes beta-con, ARNI, MRA, SGLT2i, Plavix, high intensity statin
-Not currently on DAPT due to H/O LV apical thrombus which necessitated DOAC therapy
-Home regimen also includes Lasix 20 milligrams daily for diuresis
-Regimen currently on hold due to hypotension as above
-Remains euvolemic
Diet: Low-cholesterol, no added salt
DVT prophylaxis: Home Eliquis
CODE STATUS: Full code
Anticipated Discharge: > 48 hours
Subjective/Interval History
-
Date of Service: March 27, 2025
Seen and examined at the bedside. No acute events reported overnight. AFVSS this morning with systolic blood pressure near 100 mmHg
Notified by MRI that patient is unable to have test performed due to new AICD.
She states she still has some blurry vision though slightly improved. Remains with headache. No other new complaints
Objective Data
-
Labs:
Laboratory Results
03/27/25
07:15
WBC 5.5
Hgb 11.8 L
Hct 37.1
Plt Count 260
Sodium 142
Potassium 4.2
Chloride 107
Carbon Dioxide 22
BUN 14
Creatinine 0.7
Glucose 86
Calcium 9.4
Total Bilirubin 0.8
AST 20
ALT 21
Alkaline Phosphatase 105
Vital Signs:
Vital Signs
Temp Pulse Resp BP Pulse Ox
98.7 F 85 16 97/59 96
03/27/25 11:15 03/27/25 11:15 03/27/25 11:15 03/27/25 11:15 03/27/25 11:15
I&O
03/26/25 03/27/25 03/28/25
06:59 06:59 06:59
Intake Total 760 / 760
Balance 760 / 760
Review of Systems
-
History Source: Patient
All other systems: Reviewed and negative
Physical Exam
-
General: Well Developed, No Apparent Distress and Comfortable
HEENT: Normocephalic, Atraumatic, Moist Mucous Membranes and Anicteric
Respiratory: Clear to Auscultation and Non Labored Respirations; Negative Accessory Resp Muscle Use
Cardiac: Regular Rhythm and S1/S2; Negative Murmur, Rub, JVD or Gallop
GI: Soft, Nontender, Nondistended and Normal Bowel Sounds
Musculoskeletal: No Clubbing, No Cyanosis and No Edema
Skin: Warm and Dry; Negative Rash
Neuro: AO x 3, Nonfocal/Grossly Intact, Central Nerve's Intact and Other (5/5 MMS to bilateral extremities, no gross sensory deficits); Negative Tremors
Psych: Calm
Data Reviewed
-
MRI: Discussed with Physician (Neurologist)
--- NOTE | 2025-03-27 15:20 | PTCARENOTE ---
NIH and neurochecks qshift per neurology - assessment findings WNL, NIH 1, see charting. Patient administered one time dose of PO Topamax, IV Benadryl and IV Compazine this AM per neurology, states improvement in double vision and migraine after
administration. HR 70s NSR on tele
[2025-03-27 19:43] LABS: TSH Reflex To Free T4 1.08 uIU/ml (0.47-4.68)
[2025-03-27 20:02] LABS: Vitamin B12 378 pg/ml (239-931)
[2025-03-27] MEDS: TOPAMAX 25 MG PO (20:27)
[2025-03-27] MEDS: LIPITOR 80 MG PO (21:07)
[2025-03-27 21:20] LABS: Folate 5.6 ng/ml (2.76-20)
[2025-03-28 03:07] VITALS: BP 107/69
[2025-03-28 04:19] VITALS: PULSE 80
[2025-03-28 06:00] VITALS: BMI 33.7
[2025-03-28 07:05] VITALS: BP 106/68
[2025-03-28 08:56] LABS: % Basophils 0.7 % (0-2); % Eosinophils 3.4 % (0-6); % Immature Granulocytes 0.5 % (0-0.5); % Lymphocytes 29.6 % (20.5-51.1); % Monocytes 7.4 % (1.7-9.3); % Neutrophils 58.4 % (42.2-75.2); Absolute Eosinophils 0.2 10^3/uL (0-0.7); Absolute Lymphocytes 1.8 10^3/uL (1.2-3.4); Absolute Monocytes 0.5 10^3/uL (0.1-0.6); Absolute Neutrophils 3.6 10^3/uL (1.4-6.5); Hematocrit 37.7 % (37.0-47.0); Hemoglobin 11.8 g/dL (12.0-16.0); Mean Corp Hgb Conc. 31.3 g/dL (33.0-37.0); Mean Corpuscular Hgb 28.2 pg (27.0-31.0); Mean Platelet Volume 10.1 fL (7.4-10.4); Nucleated Red Blood Cells % 0 %; Platelet Count 279 10^3/uL (130-400); Red Blood Cell Count 4.19 10^6/uL (4.20-5.40); Red Cell Dist. Width 16.1 % (11.5-14.5); White Blood Cell Count 6.1 10^3/uL (4.8-10.8)
[2025-03-28] MEDS: EFFEXOR XR 225 MG PO (09:23)
[2025-03-28] MEDS: TOPAMAX 25 MG PO (09:24)
[2025-03-28] MEDS: WELLBUTRIN XL (24 hour extended release) 300 MG PO (09:24)
[2025-03-28] MEDS: TOPROL XL 12.5 MG PO (09:24)
[2025-03-28] MEDS: ELIQUIS 5 MG PO (09:25)
[2025-03-28] MEDS: PLAVIX 75 MG PO (09:25)
[2025-03-28] MEDS: PEPCID 20 MG PO (09:25)
[2025-03-28 09:36] LABS: Blood Urea Nitrogen 13 mg/dl (7-17); Calcium 9.3 mg/dl (8.4-10.2); Carbon Dioxide 26 mmol/L (22-30); Chloride 106 mmol/L (98-107); Estimated Creatinine Clearance 96 ml/min; Glucose 88 mg/dl (70-99); Magnesium 2.2 mg/dl (1.6-2.3); Potassium 4.2 mmol/L (3.5-5.1); Sodium 144 mmol/L (135-145); eGFR > 60.00
[2025-03-28 10:23] LABS: VerifyNow PRU 213 PRU (180-376)
[2025-03-28 11:00] VITALS: BP 104/68
--- NOTE | 2025-03-28 13:32 | W.PN.HOSP.TC ---
Today's Communication/Plan
-
Discharge
Topiramate 25 mg twice
Resume Lasix with hold parameter
Hold ARNI, MRA, SGLT2i
Close follow-up with primary assembler ping pong table
Assessment / Plan
Assessment / Plan
#Diplopia
#Migraine with aura
-Per neurology differentials include migraine with aura, ischemic CVA, thiamine deficiency
-Also question hypotensive component with extensive GDMT, low BP on arrival
-Symptomatically improved with increase in topiramate, migraine cocktail
-Initial CT head without acute findings; CTA head and neck unremarkable
-MRI was ordered however unable to be obtained as AICD < 6-week old
-Symptomatically resolved as of 03/28/2025
-Discharged on topiramate 25 BID
-OP neurology follow-up
#Hypotension
-Likely secondary to GDMT for HFrEF; presented with BP 84/85 mmHg that improved with light IVF
-Holding Entresto, MRA, SGLT2 inhibitor, and Lasix for now; blood pressure improved with SBP high 90s
-Continue to hold GDMT beside beta-con at DC
-Will resume Lasix with hold parameters at DC
-Encourage patient to follow-up with her primary assembler ping pong table on Sunday
#Chronic HFrEF
#Ischemic dilated cardiomyopathy
#CAD s/p LAD STEMI with PCI
#H/O cardiac apical thrombus
-Most recent echocardiogram with LVEF 25%; status post AICD
-Recent complicated hospital course with LAD STEMI complicated by cardiogenic shock
-Ultimately required transfer to [facility] where she had ECMO, LVAD, Impella in place, TVP
-GDMT regimen includes beta-con, ARNI, MRA, SGLT2i, Plavix, high intensity statin
-Not currently on DAPT due to H/O LV apical thrombus which necessitated DOAC therapy
-Home regimen also includes Lasix 20 milligrams daily for diuresis
-Regimen currently on hold due to hypotension as above
-Remains euvolemic, resume Lasix with hold parameters at DC
Diet: Low-cholesterol, no added salt
DVT prophylaxis: Home Eliquis
CODE STATUS: Full code
Anticipated Discharge: Today
Subjective/Interval History
-
Date of Service: March 28, 2025
Seen and examined at the bedside. No acute events reported overnight. AFVSS today, SBP near 100 mmHg
Diplopia has resolved and pain improved. Denies any new symptoms today such as chest pain or shortness of breath or lightheadedness
States she would like to be discharged home if possible
Objective Data
-
Labs:
Laboratory Results
03/28/25
08:37
WBC 6.1
Hgb 11.8 L
Hct 37.7
Plt Count 279
Sodium 144
Potassium 4.2
Chloride 106
Carbon Dioxide 26
BUN 13
Creatinine 0.7
Glucose 88
Calcium 9.3
Vital Signs:
Vital Signs
Temp Pulse Resp BP Pulse Ox
98.4 F 96 16 104/68 97
03/28/25 11:00 03/28/25 11:00 03/28/25 11:00 03/28/25 11:00 03/28/25 11:00
I&O
03/27/25 03/28/25 03/29/25
06:59 06:59 06:59
Intake Total 760 / 760 1440 / 1440
Balance 760 / 760 1440 / 1440
Review of Systems
-
History Source: Patient
All other systems: Reviewed and negative
Physical Exam
-
General: Well Developed, Well Nourished, No Apparent Distress and Comfortable
HEENT: Normocephalic, Atraumatic, Moist Mucous Membranes and Anicteric
Respiratory: Clear to Auscultation and Non Labored Respirations; Negative Accessory Resp Muscle Use
Cardiac: Regular Rhythm and S1/S2; Negative Murmur, Rub, JVD or Gallop
GI: Soft, Nontender, Nondistended, Normal Bowel Sounds and No Hepatosplenomegaly
Musculoskeletal: No Clubbing, No Cyanosis and No Edema
Skin: Warm and Dry; Negative Rash
Neuro: AO x 3, Nonfocal/Grossly Intact and Central Nerve's Intact; Negative Tremors
Psych: Calm
Data Reviewed
-
Labs: Labs Reviewed by me, Discussed with Physician (Neurology) and Discussed with Patient
[2025-03-28 15:00] VITALS: BP 109/75
--- NOTE | 2025-03-28 15:13 | CM ---
Patient seen on floor [address] [place]. Patient stated that she has no needs at this time. Patient for discharge home. CM will continue to follow for discharge planning needs.
Plan; home with no needs
--- NOTE | 2025-03-28 15:32 | W.DCSUMMARY ---
Discharge Summary
Discharge Data
Date of Admission: 03/26/25
Date of Discharge: 03/28/25
Total time spent discharging patient (in min): 33
-
Pending Results: No
Hospital Course
Discharging Physician :�Mateus Vaca DO
Disposition :���� Home
Principal Discharge diagnosis :�
Diplopia
Migraine with aura
Hypotension due to heart failure medicines
Chronic Discharge diagnosis :�
Chronic HFrEF (EF 25%) S/P AICD
Ischemic cardiomyopathy
CAD s/p LAD STEMI and PCI
Apical cardiac thrombus on Eliquis
Migraines on topiramate
Status post cardiogenic shock requiring ECMO/Impella/LVAD/TVP at [facility]
Hospital Course :�
59-year-old female that presented to the hospital with complaint of blurry vision/diplopia that started on day of arrival, associated with headache. Initially concern for CVA due to history of apical thrombus. CT head was unremarkable, as well as
CTA head and neck. Was continued on home Eliquis and Plavix. Unable to have MRI performed due to AICD placement less than 6 weeks prior to this episode. Evaluated by neurology who recommended migraine cocktail and increasing topiramate from 25 mg
daily to 25 mg twice daily.
She was initially hypotensive with SBP 85 mmHg in the ED that improved with light IV fluids. GDMT for heart failure (ARNI, MRA, SGLT2i) and home Lasix were held, was continued on her low-dose beta-con. Renal function stable and blood pressure
remained stable with SBP in the low 100s. Lasix was resumed at 20 mg oral daily at time of discharge with hold parameters for SBP <100 mmHg. Recommend that she contact her primary international organizer at [facility] after the weekend to update on medication
changes and schedule office visit
Consultants :
Neurology: Efe Tucker MD
Important imaging findings :� N/A
Procedure findings :� N/A
Follow-up :
Follow-up with PCP in 1 to 2 weeks
Follow-up with primary international organizer within 1 week
Follow-up in office with neurology within 2 to 4 weeks
Discharge Plan
-
Patient Disposition: Home (Routine Discharge)
Discharge Diagnosis/Procedures: Diplopia
Migraine with aura
Hypotension due to heart failure medications
Condition: Good
Diet: Low Cholesterol, No added salt and Restrict fluids to 64 oz
Activity: As tolerated
Driving Restrictions: No driving for 24 hours
Bathing Restrictions: None
Blood Work: BMP in 5 days from discharge
Specialty Instructions: Weigh Daily- Call MD for wt gain/loss 3 lbs overnight/5 lbs in 1 week
Activity Restrictions/Additional Instructions:
Monitor your weight daily. Contact cardiology if weight increases more than 3 pounds in 1 night or 5 lbs in 1 week
If you develop recurrence of your symptoms return to the emergency department.
Referrals:
Yoshi De Leon MD [Non-Admitting Privileges] - in one week
Efe Tucker MD [Active] - in two to three weeks
Paulina Millan CRNP [Family Provider] -
Additional Discharge Medication Instructions: Hold Entresto, Jardiance, spironolactone until you see your international organizer in office
Resume Lasix 20 mg daily (hold if systolic blood pressure <100 mmHg)
Continue Eliquis, clopidogrel, atorvastatin
Increase topiramate to 25 mg twice daily
Prescriptions:
New
topiramate 25 mg Tablet
25 mg PO BID 30 Days Qty: 60 0RF
Continued
bupropion HCl 300 MG tablet extended release 24 hr
300 mg PO DAILY
venlafaxine 75 mg Tablet
225 mg PO DAILY
atorvastatin [Lipitor] 80 mg Tablet
80 mg PO HS
clopidogrel [Plavix] 75 mg Tablet
75 mg PO DAILY
metoprolol succinate [Toprol XL] 25 mg Tablet Extended Release 24 Hr
12.5 mg PO DAILY
Eliquis 5 mg Tablet
5 mg PO BID
famotidine [Pepcid] 20 mg Tablet
20 mg PO BID
furosemide [Lasix] 20 mg Tablet
20 mg PO DAILY 30 Days Qty: 30 0RF
Rx Instructions:
Hold for SBP <100 mmHg
Held
spironolactone 25 mg Tablet
12.5 mg PO DAILY
Hold Instructions: Until seen by cardiology
Jardiance 10 mg Tablet
10 mg PO DAILY
Hold Instructions: Until seen by cardiology
Entresto 24-26 mg Tablet
1 tab PO BID
Hold Instructions: Until seen by cardiology
Discontinued
topiramate [Topamax] 25 mg Tablet
25 mg PO DAILY
Discharge Orders:
Discharge Patient (As Directed); Ordered 03/28/25
Ordered By: Mateus Vaca
Discharge Date and Time
Print Language: ALBANIAN
== END 2025-03-28 15:58 | disposition home or self-care (01) | DRG 103 ==
LOC: 2 NORTH 21:48
PROVIDERS: Nurse Practitioner; Physician Assistant Medical; ADMITTING PHYSICIAN Hospitalist; ATTENDING PHYSICIAN Internal Medicine; CONSULT PHYSICIAN Psychiatry & Neurology Neurology; EMERGENCY PHYSICIAN Student in an Organized Health Care Education/Training Program; FAMILY PHYSICIAN Nurse Practitioner Family
DX: G43.109 Migraine with aura, not intractable, without status migrainosus (principal); I50.22 Chronic systolic (congestive) heart failure; H53.2 Diplopia; Z79.02 Long term (current) use of antithrombotics/antiplatelets; Z79.01 Long term (current) use of anticoagulants; I95.2 Hypotension due to drugs
CPT/HCPCS: 70450; 70496; 70498; 80048; 80053; 82607; 82728; 82746; 83735; 84425; 84443; 85025; 85027; 85576; 85610; 93005; 94660; 96360; 99285; Q9967

== ENCOUNTER 2025-04-24 11:56 | Outpatient (RCR) | payer BC, SELFPAY ==
[2025-04-01 14:40] LABS: Glucose - Point of Care 81 mg/dl (70-99)
== END 2025-04-24 23:59 | disposition home or self-care (01) ==
LOC: CRHB 11:56
PROVIDERS: ATTENDING PHYSICIAN Internal Medicine Advanced Heart Failure and Transplant Cardiology
DX: I21.01 ST elevation (STEMI) myocardial infarction involving left main coronary artery (principal); I25.10 Atherosclerotic heart disease of native coronary artery without angina pectoris (principal); Z95.5 Presence of coronary angioplasty implant and graft; I25.2 Old myocardial infarction
CPT/HCPCS: 82962; 93797; 93798

== ENCOUNTER 2025-05-25 11:53 | Outpatient (RCR) | payer BC, SELFPAY | END 2025-05-25 23:59 | disposition home or self-care (01) | LOC: CRHB 11:53 | PROVIDERS: ATTENDING PHYSICIAN Internal Medicine Advanced Heart Failure and Transplant Cardiology | DX: I25.10 Atherosclerotic heart disease of native coronary artery without angina pectoris (principal); I21.01 ST elevation (STEMI) myocardial infarction involving left main coronary artery (principal); Z95.5 Presence of coronary angioplasty implant and graft; I25.2 Old myocardial infarction | CPT/HCPCS: 93797; 93798 ==

== ENCOUNTER 2025-06-24 11:04 | Outpatient (RCR) | payer BC, SELFPAY | END 2025-06-24 23:59 | disposition home or self-care (01) | LOC: CRHB 11:04 | PROVIDERS: ATTENDING PHYSICIAN Internal Medicine Advanced Heart Failure and Transplant Cardiology | DX: I25.10 Atherosclerotic heart disease of native coronary artery without angina pectoris (principal); Z95.5 Presence of coronary angioplasty implant and graft; I25.2 Old myocardial infarction | CPT/HCPCS: 93797; 93798; G0422; G0423 ==

== ENCOUNTER → 2025-07-03 12:00 | Outpatient (REF) | payer BC, SELFPAY ==
[2025-07-03 14:20] LABS: ALT (SGPT) 21 U/L (0-35); AST (SGOT) 23 U/L (14-36); Albumin 4.9 g/dl (3.5-5.0); Alkaline Phosphatase 77 U/L (38-126); Blood Urea Nitrogen 19 mg/dl (7-17); Calcium 10.2 mg/dl (8.4-10.2); Carbon Dioxide 22 mmol/L (22-30); Chloride 109 mmol/L (98-107); Glucose 100 mg/dl (70-99); HDL Cholesterol 49 mg/dl; LDL Cholesterol, Calculated 56 mg/dl; Magnesium 2.0 mg/dl (1.6-2.3); Potassium 4.5 mmol/L (3.5-5.1); Sodium 141 mmol/L (135-145); Total Protein 7.8 g/dl (6.3-8.2); Very Low Density Lipoprotein 18 mg/dl (0-30); eGFR > 60.00
== END ==
LOC: REG 12:00
PROVIDERS: ATTENDING PHYSICIAN Internal Medicine Advanced Heart Failure and Transplant Cardiology; FAMILY PHYSICIAN Internal Medicine
DX: I21.29 ST elevation (STEMI) myocardial infarction involving other sites (principal); I44.2 Atrioventricular block, complete; R57.0 Cardiogenic shock; Z95.9 Presence of cardiac and vascular implant and graft, unspecified; I49.01 Ventricular fibrillation; I50.20 Unspecified systolic (congestive) heart failure; I25.5 Ischemic cardiomyopathy; I21.3 ST elevation (STEMI) myocardial infarction of unspecified site
CPT/HCPCS: 36415; 80053; 80061; 83735

== ENCOUNTER 2025-07-08 11:45 | Outpatient (RCR) | payer BC, SELFPAY | END 2025-07-08 23:59 | disposition home or self-care (01) | LOC: CRHB 11:45 | PROVIDERS: ATTENDING PHYSICIAN Internal Medicine Advanced Heart Failure and Transplant Cardiology | DX: I25.10 Atherosclerotic heart disease of native coronary artery without angina pectoris (principal); Z95.5 Presence of coronary angioplasty implant and graft; I25.2 Old myocardial infarction | CPT/HCPCS: 36415; 80053; 80061; 83735; 93797; 93798 ==